=== PATIENT | female | born 2000 | race Caucasian/White ===

== ENCOUNTER 2018-02-06 04:19 | Emergency (ER) | payer OTHER, MEDICAID, SELFPAY ==
[2018-02-06 04:20] VITALS: BP 144/100; PULSE 146; RESP 55; TEMP 36.9; O2SAT 98; BMI 32.3
--- NOTE | 2018-02-06 04:36 | EKG12_ITS ---
Test Reason : MHC Blood Pressure : / mmHG Vent. Rate : 095 BPM Atrial Rate : 095 BPM P-R Int : 144 ms QRS Dur : 098 ms QT Int : 364 ms P-R-T Axes : 049 048 041 degrees QTc Int : 457 ms Normal sinus rhythm Normal ECG Confirmed by VITO COY, JEREMY ([id number]), subeditor FILOMENA CARDOSO ([id number]) on 02/10/2018 2:49:03 PM Referred By: MARISA Confirmed By:JEREMY PADRON MD
[2018-02-06] MEDS: Ziprasidone IM 20 MG/ML VIAL IM (04:38)
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
[2018-02-06 05:07] LABS: Absolute Lymphocyte Count 3.76 X10^3/ul (0.83-4.51); Absolute Neutrophil Count 6.7 X10^3/uL (2.0-7.7); Basophil# 0.03 X10^3/uL; Basophil% 0.3 % (0-1); Eosinophil# 0.17 X10^3/uL; Eosinophils% 1.4 % (0-5); Hematocrit 35.9 % (37-47); Hemoglobin 12.2 g/dl (12.0-15.0); Lymphocyte # 3.76 X10^3/ul (4.0); Lymphocyte % 31.9 % (19-41); Mean Corpuscular Volume 82.5 fL (81-99); Mean Platelet Vol. 11.1 fl (6.2-12.0); Monocyte# 1.09 X10^3/uL; Monocyte% 9.2 % (0-10); Neutrophil # 6.71 X10^3/uL (2.7-7.7); Neutrophil % 56.9 % (47-70); Platelet Count 363 K/mm3 (150-450); RBC Distribution Width CV 13.7 % (11.6-14.6); RBC Distribution Width SD 40.4 fl (35.1-43.9); Red Blood Count 4.35 M/mm3 (4.2-5.4); White Blood Count 11.8 K/mm3 (4.4-11.0)
[2018-02-06 05:08] LABS: POSITIVE COUNT NO; POSITIVE DIFFERENTIAL NO; POSITIVE MORPHOLOGY NO
[2018-02-06 05:21] LABS: ALB/GLOB Ratio 0.9 RATIO (0.9-2.4); AST(SGOT) 20 U/L (15-37); Alanine Aminotransfer ALT/SGPT 43 U/L (13-56); Albumin, Serum 3.5 g/dL (3.2-5.0); Alkaline Phosphatase 84 U/L (45-117); Anion Gap 10 (5-15); BUN 19 mg/dL (7-18); BUN/Creat Ratio 26.9 RATIO (10-20); Calcium,Total 8.7 mg/dL (8.5-10.1); Chloride 109 mmol/L (98-107); Creatinine, Serum 0.71 mg/dL (0.55-1.02); EST Glomerular Filtration Rate 112 mL/min (>60); Est Glom Filt Rate - Afr Amer 136 mL/min (>60); Estimated Creatinine Clearance 119.31 ml/min; Globulin 3.9 g/dL (2.2-4.2); Glucose 106 mg/dL (74-106); Potassium 3.5 mmol/L (3.5-5.1); Protein, Total 7.4 g/dL (6.4-8.2); Sodium Level 142 mmol/L (136-145)
[2018-02-06 05:26] VITALS: BP 111/64; PULSE 101; RESP 18; O2SAT 94
[2018-02-06 05:32] LABS: Alcohol, Blood (Medical)-Serum < 3.0 mg/dL
[2018-02-06 05:37] LABS: Pregnancy, Serum, hCG Quali. NEGATIVE Negative (0-9 Nonpreg)
[2018-02-06 05:42] LABS: Amphetamine Urine VISTA NEGATIVE (<1000 ng/mL); Barbiturate Urine VISTA NEGATIVE (< 200 ng/mL); Benzodiazepine Urine VISTA NEGATIVE (< 200 ng/mL); Cocaine Urine VISTA NEGATIVE (< 300 ng/mL); Ecstacy Urine VISTA NEGATIVE (< 500 ng/mL); Methadone Urine VISTA NEGATIVE (< 300 ng/mL); PCP Urine VISTA NEGATIVE (< 25 ng/mL); THC Urine VISTA NEGATIVE (< 50 ng/mL); Vista UDS pH Range 5
--- NOTE | 2018-02-06 05:49 | ED.RN ---
CALLED [facility]SELING CENTER TO HAVE THEM COME SEE PATIENT. SUPERVISOR BLEACH [employer]ANT STATED SHE WILL LET [facility] KNOW.
--- NOTE | 2018-02-06 05:51 | ED.RN ---
GRECIA CALLED STATING SHE IS AT [facility] AND ISN'T FINISHED THERE YET SO THE PATIENT IS GOING TO HAVE TO WAIT UNTIL THE DAYSHIFT. SHE STATED SHE WOULD LET THE DAYSHIFTER COUNSELOR KNOW AND THEY WILL COME OVER TO SEE PATIENT AFTER THEIR MORNING MEETING.
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
[2018-02-06 06:11] VITALS: BP 111/66; PULSE 102; RESP 18; O2SAT 95
[2018-02-06 08:02] VITALS: BP 125/61; PULSE 72; RESP 15; O2SAT 98
[2018-02-06 12:02] VITALS: BP 115/61; PULSE 78; RESP 16; O2SAT 98
[2018-02-06 14:34] VITALS: BP 115/61; PULSE 78; RESP 16; TEMP 36.9; O2SAT 98
== END 2018-02-06 14:34 ==
PROVIDERS: Emergency Medicine; Emergency Provider Emergency Medicine; Family Provider Internal Medicine; PCP Internal Medicine
DX: R45.851 Suicidal ideations (principal); F29 Unspecified psychosis not due to a substance or known physiological condition; Z72.0 Tobacco use
CPT/HCPCS: 80053; 80307; 80320; 84703; 85025; 93005; 96372; 99285; G0480; J3486

== ENCOUNTER → 2018-03-07 08:49 | Outpatient (CLI) | payer OTHER, MEDICAID, SELFPAY ==
[2018-03-07 10:32] LABS: Hematocrit 39.8 % (37-47); Hemoglobin 12.9 g/dl (12.0-15.0); Mean Corp Hgb Conc 32.4 g/gl (32-36); Mean Corpuscular Hgb 26.9 pg (27.0-32.0); Mean Corpuscular Volume 82.9 fL (81-99); Mean Platelet Vol. 10.4 fl (6.2-12.0); Platelet Count 450 K/mm3 (150-450); RBC Distribution Width CV 13.8 % (11.6-14.6); RBC Distribution Width SD 41.9 fl (35.1-43.9); White Blood Count 10.1 K/mm3 (4.4-11.0)
[2018-03-07 10:50] LABS: Valproic Acid (Depakene) Level 4 ug/mL (50-100)
[2018-03-07 10:52] LABS: ALB/GLOB Ratio 0.8 RATIO (0.9-2.4); AST(SGOT) 32 U/L (15-37); Alanine Aminotransfer ALT/SGPT 59 U/L (13-56); Albumin, Serum 3.7 g/dL (3.2-5.0); Alkaline Phosphatase 81 U/L (45-117); Anion Gap 5 (5-15); BUN 14 mg/dL (7-18); BUN/Creat Ratio 14.2 RATIO (10-20); Calcium,Total 8.9 mg/dL (8.5-10.1); Chloride 104 mmol/L (98-107); Creatinine, Serum 0.98 mg/dL (0.55-1.02); EST Glomerular Filtration Rate 77 mL/min (>60); Est Glom Filt Rate - Afr Amer 93 mL/min (>60); Globulin 4.4 g/dL (2.2-4.2); Glucose 79 mg/dL (74-106); Potassium 4.2 mmol/L (3.5-5.1); Prolactin 12.9 ng/mL; Protein, Total 8.1 g/dL (6.4-8.2); Sodium Level 137 mmol/L (136-145)
[2018-03-07 10:55] LABS: Scan Indicated on CBC? Y/N NO
== END ==
PROVIDERS: Family Provider Internal Medicine; PCP Internal Medicine; Visit Provider Registered Nurse
DX: F25.0 Schizoaffective disorder, bipolar type (principal); Z79.899 Other long term (current) drug therapy
CPT/HCPCS: 36415; 80053; 80164; 84146; 85027

== ENCOUNTER → 2018-03-10 15:15 | Outpatient (CLI) | payer MEDICAID, SELFPAY ==
[2018-03-10 18:19] LABS: HIV - WCH Non-Reactive (Nonreactive)
[2018-03-13 03:07] LABS: HCV Quant. RNA PCR HCV Not Detected IU/mL (.)
[2018-03-13 13:53] LABS: HEPATITIS B SURFACE AG Negative (Negative); HSV 1 IgG < 0.91 index (0.00-0.90); HSV 2 IgG < 0.91 index (0.00-0.90)
[2018-03-14 01:20] LABS: Rapid Plasmin Reagin (RPR) NONREACTIVE (NONREACTIVE)
== END ==
PROVIDERS: Family Provider Internal Medicine; PCP Internal Medicine; Visit Provider Nurse Practitioner Women's Health
DX: Z11.3 Encounter for screening for infections with a predominantly sexual mode of transmission (principal)
CPT/HCPCS: 36415; 86592; 86695; 86696; 86703; 87340; 87522

== ENCOUNTER → 2018-03-10 16:05 | Outpatient (CLI) | payer OTHER, MEDICAID, SELFPAY ==
[2018-03-10 17:45] LABS: Chlamydia Trachomatis by PCR Negative (Negative); Neisserai gonorrhoeae by PCR Negative (Negative); Probe Check PASS; Sample Adequacy Control PASS; Specimen Processing Control PASS
== END ==
PROVIDERS: Family Provider Internal Medicine; PCP Internal Medicine; Visit Provider Nurse Practitioner Women's Health
DX: Z11.3 Encounter for screening for infections with a predominantly sexual mode of transmission (principal)
CPT/HCPCS: 36415; 86592; 86695; 86696; 86703; 87340; 87491; 87522; 87591

== ENCOUNTER 2018-04-12 01:49 | Emergency (ER) | payer OTHER, MEDICAID, SELFPAY ==
[2018-04-12 01:50] VITALS: BP 117/91; PULSE 90; RESP 18; TEMP 36.4; O2SAT 99; BMI 36.2
[2018-04-12 02:52] LABS: Absolute Lymphocyte Count 4.19 X10^3/ul (0.83-4.51); Absolute Neutrophil Count 4.9 X10^3/uL (2.0-7.7); Basophil# 0.03 X10^3/uL; Basophil% 0.3 % (0-1); Eosinophil# 0.17 X10^3/uL; Eosinophils% 1.7 % (0-5); Hematocrit 40.1 % (37-47); Hemoglobin 13.2 g/dl (12.0-15.0); Lymphocyte # 4.19 X10^3/ul (4.0); Lymphocyte % 41.2 % (19-41); Mean Corp Hgb Conc 32.9 g/gl (32-36); Mean Corpuscular Hgb 27.4 pg (27.0-32.0); Mean Corpuscular Volume 83.4 fL (81-99); Mean Platelet Vol. 11.4 fl (6.2-12.0); Monocyte# 0.88 X10^3/uL; Monocyte% 8.6 % (0-10); Neutrophil # 4.89 X10^3/uL (2.7-7.7); Platelet Count 413 K/mm3 (150-450); RBC Distribution Width CV 14.3 % (11.6-14.6); RBC Distribution Width SD 43.6 fl (35.1-43.9); Red Blood Count 4.81 M/mm3 (4.2-5.4); White Blood Count 10.2 K/mm3 (4.4-11.0)
[2018-04-12 02:53] LABS: POSITIVE COUNT NO; POSITIVE DIFFERENTIAL NO; POSITIVE MORPHOLOGY NO
[2018-04-12 03:11] LABS: ALB/GLOB Ratio 0.9 RATIO (0.9-2.4); AST(SGOT) 19 U/L (15-37); Alanine Aminotransfer ALT/SGPT 36 U/L (13-56); Albumin, Serum 3.8 g/dL (3.2-5.0); Alkaline Phosphatase 85 U/L (45-117); Anion Gap 7 (5-15); BUN 12 mg/dL (7-18); BUN/Creat Ratio 15.2 RATIO (10-20); Calcium,Total 9.6 mg/dL (8.5-10.1); Chloride 103 mmol/L (98-107); Creatinine, Serum 0.79 mg/dL (0.55-1.02); EST Glomerular Filtration Rate 99 mL/min (>60); Est Glom Filt Rate - Afr Amer 119 mL/min (>60); Estimated Creatinine Clearance 89.84 ml/min; Globulin 4.3 g/dL (2.2-4.2); Glucose 103 mg/dL (74-106); Potassium 4.3 mmol/L (3.5-5.1); Protein, Total 8.1 g/dL (6.4-8.2); Sodium Level 139 mmol/L (136-145)
--- NOTE | 2018-04-12 03:27 | ED.DCSUM_ITS ---
- ER Visit Summary Date of Service: 04/12/18 Chief Complaint: Vomiting blood History of Present Illness: The patient is a 18 F presenting for evaluation secondary to hematemesis and blood in her stool. Patient reports that she has had issues with intermittent hematemesis over the course of multiple years. She states that typically this will happen once a month or so, will range between being bright red and being coffee ground, and has never been evaluated via endoscopy. Patient reports that she had endoscopy scheduled but then lost her insurance, never followed up. Patient reports that in the last 2 days she has had both an episode of coffee-ground emesis as well as some red blood in her stool. She states she has had a couple of days with episodes of red blood in the stool and that is what prompted her to come to the emergency department. She denies any unintended weight loss. She denies any abdominal pain associated with this. She does not frequently take NSAIDs, she infrequently drinks alcohol. She denies any muscle cramping. Review of systems otherwise negative. Physical Examination: Vital signs are within normal limits, patient is afebrile. General: Patient is well-nourished well-developed and in no acute distress. Head: Normocephalic, atraumatic Eyes: Pupils equal round and reactive bilaterally, extra occular motion intact bialterally ENT: Moist mucous membranes Neck: Supple, no lymphadenopathy, no JVD, no meningismus CVS: Heart regular rate and rhythm, no murmurs, rubs or gallops, radial pulses 2 + bilaterally Resp: Respirations nondistressed, lung sounds clear bilaterally Abdomen: Soft, nontender, nondistended, no palpable masses, normal bowel sounds Back: Nontender Extremities: Nontender, atraumatic, active full range of motion, no peripheral edema Skin: warm, no rashes, no petechia Neuro: Alert and oriented x 4, CN 2-12 intact, no lateralizing neurological defecits Psyc: Normal affect Test Results: CBC unremarkable, chemistry unremarkable, liver panel normal, guaiac found to be negative Emergency Department Course and Treatment: Patient presented for evaluation secondary to reported hematemesis and blood in her stool. Patient did not have any blood on guaiac exam, and her hematologic studies are within normal limits. I did consider the possibility of Landon-Naranjo, but the patient does not have abdominal pain and has not had any weight loss and has normal electrolytes. Patient will be given a course of omeprazole and Carafate, and I did stress the importance to the patient of follow-up for endoscopy. She will be given a referral to general surgery for this. I informed the patient that while this may be gastritis versus an ulcer that it could also be a form of cancer and that she definitely needs to be evaluated for this. She voiced understanding and she was discharged. Disposition: Discharge Impression: 1. Stable upper GI bleed This note was generated with [employer] dictation software. It may contain incorrect words, spelling, and punctuation that were not noted in review of the chart prior to signing ED Disposition - Plan for ED Patient: Disposition: Home or Assisted Living Chief Complaint: GI Bleed Diagnosis: Hematemesis Instructions: ED Bleed UGI Stable Prescriptions: Omeprazole 40 mg PO DAILY #30 capsule. Sucralfate [Carafate] 1 gm PO 4X/DAY #120 tab Referrals: Josias Hernandez MD [STAFF PHYSICIAN] - 1-2 Weeks
[2018-04-12 03:42] VITALS: RESP 16
== END 2018-04-12 03:42 | disposition home or self-care (01) ==
PROVIDERS: Emergency Provider Emergency Medicine; Family Provider Internal Medicine; PCP Internal Medicine
DX: K92.0 Hematemesis (principal); K92.1 Melena; Z72.0 Tobacco use
CPT/HCPCS: 80053; 82274; 85025; 99282; A4216

== ENCOUNTER 2018-04-25 08:37 | Day surgery (SDC) | payer OTHER, MEDICAID, SELFPAY ==
[2018-04-25] VITALS (8 sets, daily range): BP systolic 75–124; BP diastolic 49–81; PULSE 71–85; RESP 16–18; TEMP 36.2–37; O2SAT 98–100; BMI 36.3
--- NOTE | 2018-04-25 | EGD_PTH ---
PATIENT: GILES NGUYEN LOC: EN U#:[id number] AGE/SX: 18/F ROOM: RE04/25/[address]: Dr. Helio Singleton MD : 2000 BED: DIS: 04/25/2018 SPEC #: [id number] RECD: 04/25/18 14:19 STATUS: JORGE JAYSON #: [id number] JAZMIN: 04/25/18 00:[address]: Helio Singleton DEPT: SURGICAL PATHOLOGY RECD BY: Brock Burr ENTERED: 04/28/18 08:41 SP TYPE: EGD BIOPSY OT DR: Dr. Maged Dyer MD Tissues: A - Gastric mucous membrane B - Gastric mucous membrane Procedures: Special Stain Group II Surgery Specimen Level IV Alcian Blue/PAS (control) HEADER OPERATION: EGD with biopsy PRE-OP DIAGNOSIS: GI bleed TISSUE SUBMITTED: A ? Biopsy gastric antrum, path/H. pylori, B ? Biopsy GE junction MICROSCOPIC DIAGNOSIS A. Gastric antrum, biopsy: Mild gastritis. B. GE junction, biopsy: Fragments of gastroesophageal mucosa with minimal chronic inflammation. Intestinal metaplasia (goblet cell metaplasia) is not identified. See comment. SJ:yogi 04/29/18 COMMENT A. The results of immunohistochemistry for Helicobacter pylori will be reported separately ([id number]). B. The specimen predominantly consists of squamous mucosa. Alcian blue/PAS stain with matched control is used in the evaluation of the specimen. MICROSCOPIC DESCRIPTION Slides are reviewed. A. The specimen shows fragments of gastric mucosa with chronic inflammatory cell infiltrates in the lamina propria consisting of lymphocytes and plasma cells, consistent with mild chronic gastritis. GROSS DESCRIPTION A - Received in fixative is one container labeled with the patient's name and designated biopsy gastric antrum. The specimen consists of multiple irregular fragments of light wisdom soft tissue that in aggregate measure 0.5 x 0.5 x 0.1 cm. The specimen is totally submitted in one cassette. B - Received in fixative is one container labeled with the patient's name and designated biopsy GE junction. The specimen consists of multiple irregular fragments of light wisdom soft tissue that in aggregate measure 0.5 x 0.3 x 0.1 cm. The specimen is totally submitted in one cassette. / TANNA:yogi 04/28/18 TC:3 CPT: 90652 x2, 35760
--- NOTE | 2018-04-25 | IMM_PTH ---
PATIENT: GILES NGUYEN LOC: EN U#:[id number] AGE/SX: 18/F ROOM: RE04/25/[address]: Dr. Helio Singleton MD : 2000 BED: DIS: 04/25/2018 SPEC #: [id number] RECD: 04/29/18 13:09 STATUS: JORGE RERonni #: [id number] JAZMIN: 04/25/18 00:[address]: Helio Singleton DEPT: IMMUNOHISTOCHEMISTRY RECD BY: Elena Crenshaw ENTERED: 04/29/18 13:10 SP TYPE: IMMUNO OTHR DR: Dr. Maged Dyer MD Tissues: A - Stomach, NOS Procedures: H Pylori (initial) PHYSICIAN & INSTITUTION [place] [address] SPECIMEN INFORMATION: Tissue Source: A ? Gastric antrum biopsy Clinical Info: GI bleed Specimen Number: [id number] CPT code: 59412 METHODOLOGY: Deparaffinized sections of prefer/formalin-fixed tissue or PAP/DQ stained slides are incubated with monoclonal/polyclonal antibodies/oligonucleotide probes. Localization is made via biotin free immunoperoxidase method. Appropriate controls are performed and reacted as expected. Results on target cell population are indicated in the following table: RESULTS: ANTIBODY / CLONE RESULT Block A H Pylori (polyclonal) negative These tests were developed and their performance characteristics determined by [facility]. They may not have been cleared or approved by the U.S. Food and Drug Administration. The FDA has determined that such clearance or approval is not necessary. INTERPRETATION: A. Gastric antrum, biopsy: Negative for Helicobacter pylori organisms. SJ:yogi 04/30/18
[2018-04-25 09:03] LABS: Internal QC Validated? YES +Cl - CLEAR BKGD; Pregnancy, Urine Negative Negative
--- NOTE | 2018-04-25 09:58 | OP.PCM_ITS ---
Problem List (1) GI bleed Status: Acute Qualifiers: GI bleed type/associated pathology: unspecified gastrointestinal hemorrhage type Qualified Code(s): K92.2 - Gastrointestinal hemorrhage, unspecified Report of Operation Date of Procedure: 04/25/18 Pre-Operative Diagnosis: 1. Epigastric pain. 2. Coffee-ground emesis. 3. Rectal bleeding Post-Operative Diagnosis: 1. Small hiatal hernia. 2. Possible Palak-Melton tears. 3. Normal colonoscopy Surgery/Procedure Performed:: 1. EGD with biopsy. 2. Colonoscopy Specimen's removed: 1. Antral biopsy. 2. GE junction biopsy Description of Procedure: The major risks and benefits associated with the procedure were explained to the patient in detail. The patient verbalized understanding and agreement with the same. The patient was then placed in the left lateral decubitus position. IV sedation was started by anesthesia. The endoscope was then advanced under direct visualization over the tongue, into the esophagus , stomach and duodenum. It was slowly withdrawn and the mucosa was carefully evaluated. Duodenal mucosal abnormalities were not visualized. Antegrade and retrograde views of the stomach were normal and did not reveal ulceration. There did appear to be a small hiatal hernia. Gastric folds were normal. A biopsy of the antrum was performed with cold forceps. The scope was then withdrawn to the GE junction. There appear to be some healing Palak-Melton tears of the distal esophagus. There is no active bleeding. Biopsies of the GE junction were performed. No evidence of Scott's esophagus was apparent. Careful examination of the remainder of the esophagus was normal. The scope was then withdrawn from the patient. The patient was then turned for the colonoscopy portion of the procedure. A digital rectal exam was performed. This examination was within normal limits. A well-lubricated colonoscope was then inserted into the rectum and advanced under direct visualization to the level of the cecum. The bowel prep was good. The cecum was identified by both visual and anatomic landmarks. A photograph was taken of the end of the cecum. The scope was then fully withdrawn while examining the color, texture, anatomy and integrity of the mucosa from the cecum to the anal canal. The findings were consistent with normal colonic mucosa. No active bleeding or blood clots were encountered. No AVMs were encountered. No diverticulosis was encountered. Over 6 minutes were taken to examine the colonic mucosa. Upon reaching the rectum the scope was retroflexed to examine the distal rectal vault. The scope was then straightened and was completely retrieved upon exiting the anal canal and the procedure was terminated. The patient was then transferred to the recovery room in stable condition. Recommendations for follow up: Recommend continuing PPI and Carafate and follow- up in 6 weeks. Resume colonoscopies for screening purposes at age 48.
== END 2018-04-25 11:01 | disposition home or self-care (01) ==
LOC: EN 08:39 → AC 08:40
PROVIDERS: Family Provider Internal Medicine; PCP Internal Medicine; Visit Provider Surgery
PROC: 0DJD8ZZ Inspection of Lower Intestinal Tract, Via Natural or Artificial Opening Endoscopic (ICD-10-PCS; CPT 45378; principal; 2018-04-25 09:40)
DX: K29.50 Unspecified chronic gastritis without bleeding (principal); K44.9 Diaphragmatic hernia without obstruction or gangrene; K31.89 Other diseases of stomach and duodenum; K62.5 Hemorrhage of anus and rectum; K92.0 Hematemesis; K21.9 Gastro-esophageal reflux disease without esophagitis; I10 Essential (primary) hypertension; M54.5 Low back pain; F32.9 Major depressive disorder, single episode, unspecified; F41.9 Anxiety disorder, unspecified; F25.9 Schizoaffective disorder, unspecified; F43.10 Post-traumatic stress disorder, unspecified; F12.90 Cannabis use, unspecified, uncomplicated; F17.200 Nicotine dependence, unspecified, uncomplicated; Z79.899 Other long term (current) drug therapy
CPT/HCPCS: 43239; 45378; 81025; 88305; 88313; 88342; J7120

== ENCOUNTER 2018-07-04 09:00 | Outpatient (RCR) | payer BC, OTHER, MEDICAID, SELFPAY ==
--- NOTE | 2018-06-20 12:48 | HP.PTEVAL_ITS ---
Patient's Visit Information GILES NGUYEN is a 18 year old F referred to Physical Therapy by Maged Dyer MD with a diagnosis of Chronic back pain. Date of Evaluation: 06/20/18 Physical Therapist: Zheng Tang DPT, OC - Visit Plan Frequency: 3x /Week Duration: 4-6 Weeks Plan: 3x/week for 3-6 weeks for ... 1. Neutral spine focus. 2. hip flexor/HS/ gastroc stretches. 3. Core strength emphasizing NS. progress to HEP - Subjective Subjective: LBP, spondylosis, had it for over two years. Started insidiously and every day for two years. Constant dull pain LBP, no buttock or leg pain, no numbness or tingling. Worse with walking too far or standing/sitting too long. Sleep is interrupted sometimes if it is really bad. Avoids lifting heavy objects but can do basics of ADL. Not employed. 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 No regular exercises, goes to gym intermittently for TM/stepper. - Objective Patient ambulates and transfers I and quickly I without evidence of pain. Posture shows large lordosis in L/s and L23 especially and segmentally. Poor pelvic awareness and poor spinal stability. L/S aROM ext full and painful, SB painfree, flexion is limited segmentally L23 and no pain. reflexes 2/3 patella and achilles. Sensation WNL LE to gross light touch. Strength LE 4-/5. - SLR , - slump. tighness present in gastroc, HS adn hip flexor moderately. - Goals Goal 1:: Pain in LB intermittent and 2/10 at worst Goal Time Frame: 4-6 Weeks Goal 2:: Patient feel 75% improved in LB and able to walk to rescue dogs without increased pain. Goal Time Frame: 4-6 Weeks Goal 3:: Sleep without waking for one week. Goal Time Frame: 4-6 Weeks Goal 4:: I approp HEP to minimize future problems Goal Time Frame: 4-6 Weeks - Rehabilitation Potential Physical Therapy Diagnosis: Chronic back pain facet related. Rehabilitation Potential: Fair - Anticipated Interventions Patient/Client Instruction: Educate patient on: Condition, Plan of Care For the Purpose of:: To decrease pain, To improve ability of physical actions for home/community/work/leisure Therapeutic Exercise to Include: Strength training, Flexibilty training, Dynamic Lumbar Stabilization For the Purpose of:: To decrease pain, To improve muscle performance and motor function, To improve ability of physical actions for home/community/work/leisure Thank you for the opportunity to evaluate your patient. For Medicare and Medicare HMO plans, please review the plan of care and approve it. It will need to be FAXED BACK to us at [phone] for Medicare purposes. Please let me know if there are questions or concerns regarding this plan of care. Physician Signature: Date:
--- NOTE | 2018-09-16 11:50 | HP.PT.NRP ---
HP - Discharge Summary (1) - Patient Information GILES NGUYEN was seen in my office for initial evaluation on 06/20/18. The following Plan of Care was established for this patient: Initial Frequency: 3x /Week Initial Duration: 4-6 Weeks - Anticipated Interventions Patient/Client Instruction: Educate patient on: Condition, Plan of Care For the Purpose of:: To decrease pain, To improve ability of physical actions for home/community/work/leisure Therapeutic Exercise to Include: Strength training, Flexibilty training, Dynamic Lumbar Stabilization For the Purpose of:: To decrease pain, To improve muscle performance and motor function, To improve ability of physical actions for home/community/work/leisure This patient was last seen in our office 07/04/18. Pertinent comments regarding their Physical therapy will appear below: Pt seen 5 visits of plan of care but no showed or cancelled the last three. At this point, it has been over 6 weeks adn I will discontinue due to nonattendance. At this point I will be discontinuing this patient from physical therapy. I would be happy to see this patient again in the future if found appropriate by the physician. Thank you! Zheng Tang, DPT, OC
== END 2018-07-04 19:00 | disposition home or self-care (01) ==
LOC: PT 09:00
PROVIDERS: Family Provider Internal Medicine; PCP Internal Medicine; Visit Provider Internal Medicine
DX: G54.9 Nerve root and plexus disorder, unspecified (principal); G89.29 Other chronic pain
CPT/HCPCS: 97110; 97161

== ENCOUNTER 2018-10-18 03:57 | Emergency (ER) | payer BC, MEDICAID, SELFPAY ==
[2018-09-16 14:21] VITALS: BMI 34.2
[2018-10-18 03:58] VITALS: BP 128/85; PULSE 88; RESP 16; TEMP 36.9; O2SAT 98; BMI 32.9
--- NOTE | 2018-10-18 04:13 | CT_ITS ---
STUDY: CT SOFT TISSUE NECK WITH CONTRAST REASON FOR EXAM: Female, 18 years old. Right neck swelling with difficulty swallowing and eating. RADIATION DOSAGE (If Supplied By Facility): CTDIvol = ( 20.29 ) mGy, DLP = ( 567.44 ) mGycm TECHNIQUE: The patient was scanned in a multi-detector CT scanner. High resolution transaxial imaging was performed following intravenous administration of 75 ml of Isovue 300 contrast material. Sagittal and coronal images were reconstructed. Individualized dose optimization techniques were used for this CT. COMPARISON: None. FINDINGS: Normal bilateral parotid glands. Normal bilateral tub washer spaces. Normal bilateral parapharyngeal spaces. Normal bilateral carotid spaces. Normal bilateral sublingual and submandibular glands and spaces. Normal visualized nasopharynx. Normal retropharyngeal space. Normal perivertebral space. Normal visualized bilateral faucial tonsils. The visualized tongue, tongue base and oropharynx are normal. There are multiple enlarged lymph nodes involving bilateral 2A regions. The largest right-sided apollo mass measures approximately 5.8 x 2.9 x 2.5 cm in size. There are also enlarged left-sided level 2A nodes with the largest apollo mass measuring 3.7 x 2.1 x 2.1 cm in size. There is no demonstrated solid or cystic mass lesion. There is no abnormal contrast enhancement. Normal epiglottis, bilateral vallecula and hypopharynx. The pre-epiglottic and paraglottic adipose spaces are normal. Normal visualized bilateral piriform sinuses, aryepiglottic folds, vocal cords, and arytenoid-cricoid articulations. Normal subglottic trachea. Normal bilateral lobes of the thyroid gland. Normal visualized pulmonary apices. There is suggestion for mediastinal lymphadenopathy with enlarged prevascular lymph nodes. Normal visualized paranasal sinuses. There is reversal of the normal cervical lordosis. The cervical and thoracic vertebral bodies have generally normal height and alignment. CT/Soft Tissue Neck WITH Contrast IMPRESSION: 1. Pathologic lymphadenopathy involving primarily of the level 2 apollo regions. Potential etiologies include sequela of a viral infection, and lymphoma. 2. There may also be mediastinal lymphadenopathy, incompletely imaged on the current study. Electronically Signed: Gisel Lomeli MD at 5:22 EST , Service support ,
[2018-10-18] MEDS: Ketorolac 30 MG/ML Syringe IV (04:23)
[2018-10-18] MEDS: 0.9% Normal Saline 1,000 ML 999 ML IV (04:23)
[2018-10-18] MEDS: Ondansetron 4 MG/2 ML Vial IV (04:23)
[2018-10-18 05:19] LABS: Absolute Lymphocyte Count 6.95 X10^3/ul (0.83-4.51); Absolute Neutrophil Count 1.5 X10^3/uL (2.0-7.7); Basophil# 0.34 X10^3/uL; Basophil% 3.5 % (0-1); Differential Indicated SCAN CRITERIA MET; Eosinophil# 0.02 X10^3/uL; Eosinophils% 0.2 % (0-5); Hematocrit 34.5 % (37-47); Hemoglobin 11.3 g/dl (12.0-15.0); Lymphocyte # 6.95 X10^3/ul (4.0); Lymphocyte % 71.6 % (19-41); Mean Corp Hgb Conc 32.8 g/gl (32-36); Mean Corpuscular Hgb 26.7 pg (27.0-32.0); Mean Corpuscular Volume 81.6 fL (81-99); Mean Platelet Vol. 10.7 fl (6.2-12.0); Monocyte# 0.86 X10^3/uL; Monocyte% 8.9 % (0-10); Neutrophil % 15.4 % (47-70); POSITIVE COUNT NO; POSITIVE DIFFERENTIAL YES; POSITIVE MORPHOLOGY YES; Platelet Count 189 K/mm3 (150-450); RBC Distribution Width CV 15.2 % (11.6-14.6); RBC Distribution Width SD 45.4 fl (35.1-43.9); Red Blood Count 4.23 M/mm3 (4.2-5.4); White Blood Count 9.7 K/mm3 (4.4-11.0)
[2018-10-18 05:23] LABS: Anion Gap 9 (5-15); BUN 12 mg/dL (7-18); Calcium,Total 7.9 mg/dL (8.5-10.1); Chloride 108 mmol/L (98-107); Creatinine, Serum 0.67 mg/dL (0.55-1.02); EST Glomerular Filtration Rate 119 mL/min (>60); Est Glom Filt Rate - Afr Amer 144 mL/min (>60); Estimated Creatinine Clearance 105.93 ml/min; Glucose 81 mg/dL (74-106); Potassium 3.1 mmol/L (3.5-5.1); Sodium Level 142 mmol/L (136-145)
[2018-10-18 05:47] LABS: Internal QC Validated? YES +Cl - CLEAR BKGD
[2018-10-18 05:48] LABS: Monotest POSITIVE (Negative)
[2018-10-18 05:53] LABS: Differential Comment SCANNED; Platelet Estimate ADEQUATE (ADEQ); Reactive Lymphocyte 2+; Smudge Cells 1+
[2018-10-18 05:54] LABS: Atypical Lymphocyte 2+ %
--- NOTE | 2018-10-18 05:55 | ED.VISSUMM ---
- ER Visit Summary Date of Service: 10/18/18 Chief Complaint: Neck swelling and pain History of Present Illness: The patient is a 18 F who presents with neck swelling and pain. She has had neck pain for greater than a. She complains of intermittent sweats but has not checked her temperature. She has had 4-5 episodes of nonbloody nonbilious emesis over the last couple of days. She complains of pain particularly on the right side of her neck with movement. She complains of a sore throat. No history of prior similar symptoms. Physical Examination: Afebrile vitals are normal Patient has bilateral cervical lymphadenopathy and a palpable mass on the right side of the neck Bilateral tonsillar enlargement with bilateral tonsillar exudates no tonsillar asymmetry uvula is midline she does have posterior oral pharyngeal erythema Voice is clear no trismus No stridor Heart regular rate and rhythm Lungs are clear Abdomen soft Test Results: Labs notable for hemoglobin 11.3, potassium 3.1. CT of the soft tissue of the neck with IV contrast shows pathologic lymphadenopathy involving primarily of the level 2 apollo regions. It is also possible mediastinal lymphadenopathy. Edgar screen was positive. Emergency Department Course and Treatment: Initially I thought that this may be sialoadenitis. However CT imaging shows that this was on a salivary gland but rather massive lymph nodes. Given diffuse lymphadenopathy with sore throat raised concern for mono and a mono screen was added on which is positive. Total white blood cell count is normal. Lymphadenopathy very unlikely to be related to lymphoma. However patient was advised that if lymphadenopathy does not improve she may require further follow-up or testing. She was advised on supportive care. She understands to return for new or worsening symptoms. All questions answered bedside. Patient discharged. Treatment Plan: [] Disposition: Discharge Impression: Mononucleosis This note was generated with [employer] software. It may contain incorrect words, spelling, and punctuation that were not noted in review of the chart prior to signing ED Disposition - Plan for ED Patient: Chief Complaint: Other, Pain/Inj Referrals: Maged Dyer MD [Primary Care Provider] -
--- NOTE | 2018-10-18 05:59 | ED.DEP ---
ED Disposition - Plan for ED Patient: Chief Complaint: Other, Pain/Inj Instructions: ED Mononucleosis Referrals: Maged Dyer MD [Primary Care Provider] -
[2018-10-18 06:19] VITALS: RESP 16
[2018-10-20 10:54] LABS: Pathologist Review Reviewed
== END 2018-10-18 06:20 | disposition home or self-care (01) ==
PROVIDERS: Emergency Provider Emergency Medicine; Family Provider Internal Medicine; PCP Internal Medicine
DX: B27.90 Infectious mononucleosis, unspecified without complication (principal); I10 Essential (primary) hypertension; K21.9 Gastro-esophageal reflux disease without esophagitis; Z79.899 Other long term (current) drug therapy
CPT/HCPCS: 36415; 70491; 80048; 85025; 86308; 87880; 96361; 96374; 96375; 99284; J7030; Q9967; J2405

== ENCOUNTER 2018-11-21 09:00 | Outpatient (RCR) | payer BC, SELFPAY ==
[2018-10-23 09:49] VITALS: BMI 32.9
--- NOTE | 2018-11-21 09:40 | BH.COMM ---
Communication Note - Communication with Client Communication Note: Pt completed intial paperwork. No significant changes since pre-admission screening. Denies SI. Reports that she had forgetten about ECT appointment today and notes that she has to leave early. Due to leaving early she will not be able to see program psychiatrist today. Will be meeting with ECT psychiatrist this afternoon for ECT treatment. No medication or symptoms issues reported. Aware and will follow up with program psychiatrist next week.
--- NOTE | 2018-11-21 10:05 | BH.SGPN.GN ---
Behaviors/Verbalizations/Mental Status: [] Eye contact is good. Motor activity is appropriate. Appearance is disheveled. Speech is Appropriate. Mood is depressed. Affect is flat. Thoughts are linear and logical. No evidence of psychosis. Client Response/Progress/Benefit: [] Pt was an active participant in group activity and discussion. Pt shira a picture depicting current reality and shared it with the group. In pt's current reality she shira herself alone behind a brick wall. The brick wall symbolizes stress, MH, work, and family. Pt then shira a picture depicting desired reality which is her breaking through the wall with a sledge hammer. Identified barriers which are keeping from desired reality are no motivation and inability to get in touch with feelings Benefited from group with self-reflect of current status and desired status as well as the barriers keeping her from her mental health wellness. Will continue in PHP to maintain safety and prevent further decompensation. Narrative Note: []
--- NOTE | 2018-11-26 09:53 | BH.COMM ---
Communication Note - Communication with Client Communication Note: Spoke with patient over the phone. Reports that due to continued ECT treatment she feels that IOP program at this time may not be the best idea. Strated that once ECT is completed she will reach out again to start the program. Pt will be discharged.
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
== END 2018-11-26 11:36 | disposition home or self-care (01) ==
LOC: BHIOP 09:00
PROVIDERS: Family Provider Internal Medicine; PCP Internal Medicine; Referring Provider Psychiatry & Neurology Psychiatry; Visit Provider Psychiatry & Neurology Psychiatry
DX: F25.9 Schizoaffective disorder, unspecified (principal)
CPT/HCPCS: H0035; 90853

== ENCOUNTER 2019-01-15 18:29 | Emergency (ER) | payer BC, SELFPAY ==
[2018-10-23 09:49] VITALS: BMI 32.9
[2019-01-15 18:30] VITALS: BP 117/81; PULSE 79; RESP 16; TEMP 36.6; O2SAT 99; BMI 30.2
--- NOTE | 2019-01-15 18:45 | CM.ED ---
SOCIAL WORK NOTE PATIENT PRESENTS TO ED PINK SLIPPED BY POLICE. PATIENT WITH SUICIDAL IDEATION AND PLAN TO HANG SELF. PATIENT HAD A NOOSE. PATIENT TO BE EVALUATED BY CRISIS ONCE MEDICALLY CLEARED. CLAUDIA GRACE, ASSISTANT DIRECTOR OF SECURITY, TAR LEVELER.
--- NOTE | 2019-01-15 19:00 | ED.VISSUMM ---
- ER Visit Summary Date of Service: 01/15/19 Chief Complaint: Depressed and suicidal ideation. History of Present Illness: The patient is a 18 F treatment Psychiatric illness including bipolar, borderline personality disorder, schizoaffective disorder, anxiety and hypertension. Patient is supposed to be on psychiatric meds but is currently not taking them. He lives with her boyfriend and his family. She says she has been under increasing stress due to work and other issues. She is been more depressed. Today she had suicidal thoughts. And had made a noose and put around the tree but did not actually attempt to hang herself. Police were involved and she was brought to the ER. She denies any overdose. She has had prior psychiatric admissions including one in October. Physical Examination: Well-appearing 18-year-old no acute distress. Vital signs are stable afebrile. H EENT exam atraumatic. Pupils are reactive light. No smell of alcohol or signs of toxidrome. Piercings. Neck nontender no trauma. Lungs clear to auscultation bilaterally. Heart regular rhythm no murmur. Abdomen soft nontender. Moving all 4 extremities. Neurovascular intact. No injuries to her extremities. No lacerations. No track woodard. Back nontender. Neurologically she is awake alert with no focal motor deficits. Currently she is cooperative and reasonably calm. She is neither violent nor verbally abusive at this time. Test Results: ED mental health screening labs. No acute abnormality. Positive cannabis on the tox screen. Alcohol negative. Emergency Department Course and Treatment: Crisis evaluation Treatment Plan: I discussed with the crisis drywall professional. They also believe the patient is at risk and are going to place her in a psychiatric facility. Disposition: Transfer to psychiatric facility. Impression: Acute on chronic depression Acute suicidal ideation History of schizoaffective disorder and borderline personality This note was generated with Zarbee'sation software. It may contain incorrect words, spelling, and punctuation that were not noted in review of the chart prior to signing ED Disposition - Plan for ED Patient: Referrals: Maged Dyer MD [Primary Care Provider] -
--- NOTE | 2019-01-15 19:03 | ED.DCSUM_ITS ---
- ER Visit Summary Date of Service: 01/15/19 Chief Complaint: Depressed and suicidal ideation. History of Present Illness: The patient is a 18 F treatment Psychiatric illness including bipolar, borderline personality disorder, schizoaffective disorder, anxiety and hypertension. Patient is supposed to be on psychiatric meds but is currently not taking them. He lives with her boyfriend and his family. She says she has been under increasing stress due to work and other issues. She is been more depressed. Today she had suicidal thoughts. And had made a noose and put around the tree but did not actually attempt to hang herself. Police were involved and she was brought to the ER. She denies any overdose. She has had prior psychiatric admissions including one in October. Physical Examination: Well-appearing 18-year-old no acute distress. Vital signs are stable afebrile. H EENT exam atraumatic. Pupils are reactive light. No smell of alcohol or signs of toxidrome. Piercings. Neck nontender no trauma. Lungs clear to auscultation bilaterally. Heart regular rhythm no murmur. Abdomen soft nontender. Moving all 4 extremities. Neurovascular intact. No injuries to her extremities. No lacerations. No track woodard. Back nontender. Neurologically she is awake alert with no focal motor deficits. Currently she is cooperative and reasonably calm. She is neither violent nor verbally abusive at this time. Test Results: ED mental health screening labs. No acute abnormality. Positive cannabis on the tox screen. Alcohol negative. Emergency Department Course and Treatment: Crisis evaluation Treatment Plan: I discussed with the crisis qa intern. They also believe the patient is at risk and are going to place her in a psychiatric facility. Disposition: Transfer to psychiatric facility. Impression: Acute on chronic depression Acute suicidal ideation History of schizoaffective disorder and borderline personality This note was generated with RESAASation software. It may contain incorrect words, spelling, and punctuation that were not noted in review of the chart prior to signing ED Disposition - Plan for ED Patient: Referrals: Maged Dyer MD [Primary Care Provider] -
[2019-01-15 19:47] LABS: Absolute Lymphocyte Count 3.03 X10^3/ul (0.83-4.51); Absolute Neutrophil Count 7.3 X10^3/uL (2.0-7.7); Basophil# 0.02 X10^3/uL; Basophil% 0.2 % (0-1); Eosinophil# 0.07 X10^3/uL; Eosinophils% 0.6 % (0-5); Hematocrit 38.9 % (37-47); Hemoglobin 12.8 g/dl (12.0-15.0); Lymphocyte # 3.03 X10^3/ul (4.0); Mean Corp Hgb Conc 32.9 g/gl (32-36); Mean Corpuscular Hgb 26.4 pg (27.0-32.0); Mean Corpuscular Volume 80.4 fL (81-99); Mean Platelet Vol. 11.6 fl (6.2-12.0); Monocyte# 1.23 X10^3/uL; Monocyte% 10.6 % (0-10); Neutrophil # 7.26 X10^3/uL (2.7-7.7); Neutrophil % 62.3 % (47-70); Platelet Count 361 K/mm3 (150-450); RBC Distribution Width SD 43.6 fl (35.1-43.9); Red Blood Count 4.84 M/mm3 (4.2-5.4); White Blood Count 11.6 K/mm3 (4.4-11.0)
[2019-01-15 19:48] LABS: POSITIVE COUNT NO; POSITIVE DIFFERENTIAL NO; POSITIVE MORPHOLOGY NO
[2019-01-15 19:54] LABS: Anion Gap 5 (5-15); BUN 13 mg/dL (7-18); BUN/Creat Ratio 16.9 RATIO (10-20); Calcium,Total 9.2 mg/dL (8.5-10.1); Chloride 109 mmol/L (98-107); Creatinine, Serum 0.77 mg/dL (0.55-1.02); EST Glomerular Filtration Rate 101 mL/min (>60); Est Glom Filt Rate - Afr Amer 122 mL/min (>60); Estimated Creatinine Clearance 92.18 ml/min; Glucose 82 mg/dL (74-106); Potassium 3.5 mmol/L (3.5-5.1); Sodium Level 140 mmol/L (136-145)
[2019-01-15 20:00] VITALS: RESP 14
[2019-01-15 20:03] LABS: Amphetamine Urine VISTA NEGATIVE (<1000 ng/mL); Barbiturate Urine VISTA NEGATIVE (< 200 ng/mL); Benzodiazepine Urine VISTA NEGATIVE (< 200 ng/mL); Cocaine Urine VISTA NEGATIVE (< 300 ng/mL); Ecstacy Urine VISTA NEGATIVE (< 500 ng/mL); Methadone Urine VISTA NEGATIVE (< 300 ng/mL); PCP Urine VISTA NEGATIVE (< 25 ng/mL); THC Urine VISTA POSITIVE (< 50 ng/mL); Vista UDS pH Range 6
[2019-01-15 20:17] LABS: Pregnancy, Serum, hCG Quali. NEGATIVE Negative (0-9 Nonpreg)
[2019-01-15 21:00] VITALS: RESP 16
[2019-01-15 22:00] VITALS: BP 109/63; PULSE 73; RESP 14; O2SAT 98
--- NOTE | 2019-01-15 22:21 | NURSING ---
ACCEPTED TO [facility] BY DR. NICOLAS BRADLEY UNIT [phone] REPORT
[2019-01-15] MEDS: Ziprasidone IM 20 MG/ML VIAL IM (22:50)
--- NOTE | 2019-01-15 23:25 | ED.RN ---
PT WAS INFORMED THAT SHE WAS GOING TO BED TRANSFERRED TO [facility]. AT THIS POINT SHE RAN FROM THE NURSE OUT OF THE DEPARTMENT AND DOWN TE BACK [place] OF THE HOSPITAL. SHE WAS ESCORTED BACK TO HER ROOM WITH SEVERAL STAFF MEMBERS AND GIVEN AN IM INJECTION OF MEDICATION TO HELP CALM HER DOWN. BEDSIDE REPORT WAS GIVEN TO THE SQUAD TAKING HER. REPORT WAS CALLED TO HOWARD FROM [facility]
[2019-01-15 23:28] VITALS: RESP 16
== END 2019-01-15 23:28 ==
LOC: ED 19:15
PROVIDERS: Emergency Provider Emergency Medicine; Family Provider Internal Medicine; PCP Internal Medicine
DX: F31.9 Bipolar disorder, unspecified (principal); R45.851 Suicidal ideations; F25.9 Schizoaffective disorder, unspecified; F60.3 Borderline personality disorder; F41.9 Anxiety disorder, unspecified; I10 Essential (primary) hypertension
CPT/HCPCS: 80048; 80307; 80320; 84703; 85025; 99284; G0480; J3486

== ENCOUNTER 2019-02-16 09:00 | Outpatient (RCR) | payer BC, SELFPAY ==
--- NOTE | 2019-02-16 10:40 | BH.COMM ---
Communication Note - Communication with Client Communication Note: Completed admission paperwork. Denies any significant changes since pre-admission screening. Denies any active suicidal ideations, plan, or intent. Appears motivated for IOP.
--- NOTE | 2019-02-16 11:25 | BH.SGPN.GN ---
Addendum entered and electronically signed by JAN Griffin 10/21/19 10:28: Addendum entered to include missing Group Psychotherapy Session Note #2. Date: 02/16/19 Start: 1025 Duration: 50 minutes Plant Engineering Manager: Erica Vinson Group Topic: Crisis # of Participants: 10 Goal of Group: To increase understanding of a crisis and improve client?s awareness of personal warning signs before crisis. Staff Interventions: Therapist facilitated group discussion about defining a crisis and specifying various events that are considered a crisis. Therapist led the group in discussion about identifying personal warning signs before a crisis and importance of being aware of those signs. Therapist provided support by using active listening and providing feedback. Behaviors/Verbalizations/Mental Status: Client alert and oriented, casually dressed and groomed. Eye contact fair. Motor activity restless. Speech within normal limits. Affect constricted, mood dysthymic and anxious. Thoughts linear, logical, no signs of hallucinations or delusions. Client Response/Progress/Benefit: Client passive participant AEB pt providing limited input, however appeared to listen attentively to others. Connected with discussion on how coping with external crisis by using unhealthy coping skills could lead to personal crisis. Client completed the personal warning signs worksheet and identified crisis warning signs to include: restlessness, increased impulsiveness, and isolation. Benefited from group by increasing awareness of crisis and personal warning signs. Will continue IOP tx to increase healthy coping, improve emotional regulation and prevent decompensation. Original Note: Behaviors/Verbalizations/Mental Status: []Client alert and oriented, casually dressed and groomed. Eye contact fair. Motor activity appropriate. Speech within normal limits. Affect constricted, mood anxious. Thoughts linear, logical, no signs of hallucinations or delusions. Client Response/Progress/Benefit: []Client responded well to session as evidenced by client contributing to discussion and listening attentively to others. Client identified her warning signs for crisis and gained further awareness of her earliest warning signs. Client?s top three early warning signs were uncontrollable worries, racing thoughts, and apathy. Client recognized that awareness of these warning signs can prevent further crisis and help client utilize healthy coping skills to break the cycle. Client created a crisis action plan to help client better manage warning signs for crisis. Client?s plan included coping skills such spending time outside and talking to trusted supports. Client selected two items that will help her remember these crisis interventions including a feather and a rock. Client appeared to benefit from creating a crisis action plan and increasing her self-awareness. Client to continue IOP to prevent decompensation and increase emotional regulation.
--- NOTE | 2019-02-16 16:24 | BH.DR.ITP ---
Initial Treatment Plan - Patient Information Visit Information: ADMISSION DATE: 02/16/19 EXPECTED LOS: 4-6 weeks Diagnoses:: Schizoaffective D/O, Bipolar type; DIONICIO, Alcohol Use D/O - Problems/Symptoms Problem #1:: Schizoaffective D/O, bipolar type Symptom:: command/visual/auditory hallucinations, depression, paranoia, delusions Problem #2:: DIONICIO Symptom:: anxiety, worry, shakiness Problem #3:: Alcohol Use Disorder, Problematic Cannabis Use Symptom:: drinking excessively, amoking cannabis to self-medicate
--- NOTE | 2019-02-26 16:28 | BH.PSY.EVA_ITS ---
Initial Treatment Plan - Patient Information Visit Information: ADMISSION DATE: 02/16/19 EXPECTED LOS: 4-6 weeks Diagnoses:: Schizoaffective D/O, Bipolar type; DIONICIO, Alcohol Use D/O - Problems/Symptoms Problem #1:: Schizoaffective D/O, bipolar type Symptom:: command/visual/auditory hallucinations, depression, paranoia, delusions Problem #2:: DIOINCIO Symptom:: anxiety, worry, shakiness Problem #3:: Alcohol Use Disorder, Problematic Cannabis Use Symptom:: drinking excessively, amoking cannabis to self-medicate
== END 2019-02-17 23:59 ==
LOC: BHIOP 09:00
PROVIDERS: Family Provider Internal Medicine; PCP Internal Medicine; Referring Provider Psychiatry & Neurology Psychiatry; Visit Provider Psychiatry & Neurology Psychiatry
DX: F25.0 Schizoaffective disorder, bipolar type (principal); F41.1 Generalized anxiety disorder; Z72.89 Other problems related to lifestyle
CPT/HCPCS: H0035; 90853

== ENCOUNTER 2019-02-18 09:00 | Outpatient (RCR) | payer BC, SELFPAY ==
--- NOTE | 2019-02-16 09:06 | BH.SGPN.GN ---
Behaviors/Verbalizations/Mental Status: [t alert and oriented, casual dress, grooming appropriate. Eye contact good. Motor activity appropriate. Speech within normal limits. Affect congruent, mood euthymic, anxious. Thoughts linear, logical, no signs of hallucinations or delusions. Reviewed client?s symptom tracker, no signs of suicidal ideation, plan, or intent as of today.?] Client Response/Progress/Benefit: [Pt was a willing participant in group discussion, providing limited input however as it is her first day in IOP group. Discussed that ongoing depression and issues with PTSD have led to IOP admission. Indicates issues in struggling with nausea when becoming anxious or overwhelmed. Pt appeared to benefit from support of the group and discussed wanting to improve social supports, anxiety management, and self-esteem. Progress limited due to pt being new to program. Pt recommended continued IOP tx to further improve emotion regulation, maintain safety, as well as to prevent decompensation. ] Narrative Note: []
--- NOTE | 2019-02-18 09:09 | BH.SGPN.GN ---
Behaviors/Verbalizations/Mental Status: [Pt alert and oriented, casual dress, grooming appropriate. Eye contact fair to good. Motor activity appropriate. Speech within normal limits. Affect congruent, mood depressed and anxious. Thoughts linear, logical, no signs of hallucinations or delusions. Reviewed client?s symptom tracker, no signs of suicidal ideation, plan, or intent as of today.?] Client Response/Progress/Benefit: [Pt receptive of session, provided input to the group and remained an active listener throughout. Pt indicated emotion for today is ?worried and went on to explain that she had recently learned of several family situations that are stressing her out and causing increased worry about their health and wellness. Pt described discovering that a friend had been declared a missing person which is her primary stressor but that she is trying to use healthy coping skills rather than return to her old unhealthy means for coping. Identified talking to her supports and setting boundaries with toxic people as well as spending time outdoors. Pt progress noted in ability to identify consequences of returning to prior coping mechanisms however continues to struggle in implementation of alternative coping mechanisms. Recommended continued IOP tx to improve mental health sx, increase positive self-talk and healthy boundaries, as well as prevent decompensation.] Narrative Note: []
--- NOTE | 2019-02-18 10:17 | BH.SGPN.GN ---
Behaviors/Verbalizations/Mental Status: [Client alert and oriented, casually dressed and appropriate grooming. Eye contact good. Motor activity appropriate. Speech within normal limits. Affect constricted, mood depressed and anxious. Thoughts linear, logical, no signs of hallucinations or delusions. ] Client Response/Progress/Benefit: [Pt receptive to session, provided input and actively contributing throughout discussion on stress. Able to brainstorm with the group positive and negative aspects of stress on physical and mental health. Indicated that an example of ?good stress? as increase motivation and ability to meet deadlines. Appeared to benefit from gaining awareness of own current stressors and learning about the impact stress has on overall wellbeing. Discussed that overwhelming stress causes her to shut down, lash out at others, lose focus, and impacts her memory. She participated in identifying current stressors impacting mental health. Pt's current stressors include: mental health problems, estranged family, money, past actions, and wanting to move out. Pt noted that her most significant stressor is ruminating on the past. Progress noted in improved ability to identify impact of current stressors on mental health and wellbeing. Recommended continued IOP tx to improve anxiety and depression symptom management, increase self-confidence, and prevent decompensation. ] Narrative Note: []
--- NOTE | 2019-02-20 09:10 | BH.SGPN.GN ---
Behaviors/Verbalizations/Mental Status: [] Eye contact is good. Motor activity is appropriate. Appearance is neat. Speech is Appropriate. Mood is anxious. Affect is congruent. Thoughts are linear and logical. No evidence of psychosis. Reviewed daily check in sheet and no reports of suicidal ideations or intent Client Response/Progress/Benefit: [] Pt spoke little during group however was attentive. Restless. Emotion for today is overwhelmed. Shared with the group numerous psychosocial stressors as well as a positive of helping out a friend who was in an emotional crisis. She was offered a job however has some concern that she will not be able to keep the job due to mental health issues. Despite numerous psychosocial stressors around her involving friends and bio-family she reports that she is managing day to day emotions well. Benefited from group support and praise. Will continue in IOP to maintain safety, prevent decompensation, and further stabilize mood. Narrative Note: []
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
--- NOTE | 2019-02-20 13:56 | BH.DR.ITP ---
Initial Treatment Plan - Patient Information Visit Information: ADMISSION DATE: 02/16/19 EXPECTED LOS: 4-6 weeks Diagnoses:: Schizoaffective disorder, bipolar type; DIONICIO; alcohol use disorder; problematic cannabis use - Problems/Symptoms Problem #1:: schizoaffective disorder, bipolar type Symptom:: Hallucinations, depression, paranoia, delusions Problem #2:: DIONICIO Symptom:: anxiety, worry, shakiness Problem #3:: alcohol use disorder; problematic cannabis use Symptom:: Drinking excessively and smoking MJ to self-medicate
--- NOTE | 2019-02-20 15:43 | BH.MDN_ITS ---
Multi-Disciplinary Note - Note 45-min Individual Time Started:: 11:20 Date: 02/20/19 Purpose of session/treatment goals addressed:: The purpose of this session was to gather information on client's current stressors, symptoms, and treatment goals. Another goal was to build rapport, practice grounding techniques, and set a goal. Eye Contact:: Good Motor Activity:: Restless - shaking her leg throughout session Appearance:: Neat Speech:: Appropriate Mood:: Anxious, Dysthymic Affect:: Other - smiling and laughing while reporting high anxiety and disappointment Thoughts:: Racing, No evidence of hallucinations/delusions noted Staff Interventions:: Therapist used active listening and open-ended questions to explore client's current stressors, symptoms, and treatment goals. Therapist used strengths perspective to build rapport and help client identify positives and personal resilience factors. Therapist led client grounding techniques to help reduce client?s symptoms of anxiety. Therapist gathered client?s treatment goals. Therapist encouraged client to pay attention to self-care over the weekend and helped set a goal to eat a least one meal a day. Client Response:: Client responded well to session, open to meeting with therapist. Client heavily shaking at the beginning of session and reported throwing up before session. Client shared I'm fine I just smoked on an empty stomach. Client able to recognize she is shaking because of anxiety and news she just received. Client receptive to practicing grounding techniques. Client completed a body scan and the 5-senses, which per client's report helped reduce physiological symptoms. Client also receptive to thought challenging and identifying personal resilience factors. Client reports a long-history of mental health symptoms, trauma, and mood dysregulation. Client reported she has struggled with using coping skills in the past which has resulted in crisis. Client self-reports I feel like I'm coping really well right now which is significant as client has numerous major stressors going on in her life. Client reports her boyfriend and best friend are very supportive and encourage client to get mental health help and use coping skills. Client also just recently got connected with a case management and new outpatient therapist. Client shared she enjoys the IOP groups so far. Client shared her treatment goals and reported she hopes to be consistent in using healthy skills as client reports history of variable follow through. Client reported she has not been eating very much over the past few days. Client acknowledges how lack of self-care can impact mood and progress. Client set a goal to eat at least once a day over the weekend. Risks/Concerns:: Client denies any suicidal ideations, plan, and intent as of 02/20/19. Client reports that the past few days she has not been eating very much and client became sick outside during a group break. Client receptive to eating at least one meal a day over the weekend. Therapist to continue to monitor. Progress Toward Goals/Plan:: Client's first week in IOP. Client appears to be integrating well into the group setting. Client reports long history of cady lucinations, emotional dysregulation, trauma, and mental health symptoms. Client reports being hopeful and motivated to improve her mental health. Client has been in treatment for several years and she reports belief that she is handling her symptoms ?way better? than she has in the past. Client currently endorses ruminative anxiety, auditory hallucinations, a depressed mood, difficulty concentrating, poor appetite, and variable sleeping. Client identified her treatment goals to be increase stress management, increase coping skills, reduce negative thoughts, and increase consistent follow through. Client to continue IOP to prevent decompensation and increase emotional regulation skills. Time Stopped:: 12:00
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
--- NOTE | 2019-02-22 09:29 | BH.MTP ---
[facility] Treatment Plan - Patient Information Program Physician:: Flavia Lee Primary Therapist:: Fawn Acuna - Psychiatric Diagnoses Psychiatric Diagnoses:: Schizoaffective disorder, bipolar type F25.0; DIONICIO; alcohol use disorder; problematic cannabis use Diagnosis Code(s):: F25.0 - Estimated LOS Estimated LOS (in weeks):: 6 Problem/Goal #1 - Problem/Goal #1 Stated Goal:: Client will increase mood stability, decrease depressive symptoms, and paranoia due to schizoaffective disorder, bipolar type through Intensive Outpatient Program Description of Barriers: Client reports a long history of mental health symptoms that have impacted her ability to maintain a job. Client is currently looking for work and independent housing, but she fears she will not be able to hold down a job. Client reports a turbulent relationship with her boyfriend's mother, who client and her boyfriend live with, which increases client's anxiety per her report. Client self-reports history of lack of follow through with using coping skills and medication noncompliance. Client is currently utilizing medical marijuana to cope with her PTSD and anxiety, but she recognizes she needs to learn other ways to cope as well. Client also drinks and has a history of substance abuse. Client has been struggling to maintain a consistent eating and sleeping schedule. Client reports difficulty setting boundaries with toxic people and people pleasing that leads client feeling overwhelmed and burnout. Functional Impact: Client is a 18-year-old female with a history of schizoaffective disorder, bipolar type, PTSD, and anxiety. Client has had several psychiatric admissions with two recent admissions since September 2018. Client was discharged from [facility] on 01/21/19. Client was referred to [facility] by her outpatient psychiatric nurse practitioner, Isa Weston, due to ongoing mood symptoms. Client endorses increased sleep, lack of motivation, lack of energy, anhedonia, worthlessness, and hopelessness. Client denies any active suicidal ideations, plan, or intent. Client has a history of suicidal attempts and gestures. Client reports long-standing history of auditory and visual hallucinations, but shared they are not currently distressing. Client also reports anxiety, rumination, and significant history of trauma. Client's symptoms are impacting her social and occupational functioning and impacting her ability to function at her baseline. Goal Relevant Strengths/Supports: Client is a kind, intelligent, and resilient person who reports motivation to improve her mental health. Client shared belief she is managing her mental health better than she has in the past, which is providing client hope. Client has a case finishing machine adjuster who is helping client find affordable housing. Client identifies her boyfriend and her best friend as her primary mental health supports and client shared they keep me positive. Client uses coping skills such as art and being in nature. Client is insightful and determined to improve her life. - Objectives Objective #1 Stated Objective: Client will learn and utilize 2-3 healthy coping strategies to better manage depressive symptoms and emotional dysregulation as shown by a reduced DSM-5 score for depression. Interventions: Through group and individual sessions, therapist will help client identify triggers and warning signs of depression and emotional dysregulation including emotional, physical, and behavioral changes. Therapist will teach client various coping skills to manage her symptoms and give client tangible resources to use to regulate emotions. Therapist will use cognitive restructuring techniques and help client gain awareness of negative thoughts that reinforce depressive cycles. Therapist will help client incorporate mindfulness and distress tolerance skills when dealing with difficult situations or relationships. Discharge Criteria: Client will have met this goal when she can report learning and using at least 2 coping skills to manage depressive symptoms and emotional dysregulation. Additionally, client will have met this goal when her DSM-5 scores have decreased for depression. Target Date: 03/30/19 Review Date: 03/18/19 Status: open Objective #2 Stated Objective: Client will identify and replace 2-3 negative thinking patterns that reinforce depressive symptoms, helplessness, and paranoia. Interventions: Through groups and individual therapy, client will be provided with education on cognitive distortions, mistaken beliefs, and identifying and combating negative thoughts. Therapist will assist client in recognizing triggers for increased depressive thought patterns. Therapist will help client explore connection between thoughts, feelings, and actions and help client reframe depressive thought patterns. Therapist will help client gain awareness paranoid thoughts and use reality testing to help client challenge these thoughts. Discharge Criteria: Client will have accomplished this goal when client can identify and replace at least 2 negative thinking patterns with more realistic, positive statements. Target Date: 03/30/19 Review Date: 03/18/19 Status: open Problem/Goal #2 - Problem/Goal #2 Stated Goal:: Client will reduce overall frequency, intensity, and duration of the anxiety so that daily functioning is not impaired. Description of Barriers: Client reports a long history of mental health symptoms that have impacted her ability to maintain a job. Client is currently looking for work and independent housing, but she fears she will not be able to hold down a job. Client reports a turbulent relationship with her boyfriend's mother, who client and her boyfriend live with, which increases client's anxiety per her report. Client self-reports history of lack of follow through with using coping skills and medication noncompliance. Client is currently utilizing medical marijuana to cope with her PTSD and anxiety, but she recognizes she needs to learn other ways to cope as well. Client also drinks and has a history of substance abuse. Client has been struggling to maintain a consistent eating and sleeping schedule. Client reports difficulty setting boundaries with toxic people and people pleasing that leads client feeling overwhelmed and burnout. Functional Impact: Client is a 18-year-old female with a history of schizoaffective disorder, bipolar type, PTSD, and anxiety. Client has had several psychiatric admissions with two recent admissions since September 2018. Client was discharged from [facility] on 01/21/19. Client was referred to [facility] by her outpatient psychiatric nurse practitioner, Isa Westno, due to ongoing mood symptoms. Client endorses increased sleep, lack of motivation, lack of energy, anhedonia, worthlessness, and hopelessness. Client denies any active suicidal ideations, plan, or intent. Client has a history of suicidal attempts and gestures. Client reports long-standing history of auditory and visual hallucinations, but shared they are not currently distressing. Client also reports anxiety, rumination, and significant history of trauma. Client's symptoms are impacting her social and occupational functioning and impacting her ability to function at her baseline. Goal Relevant Strengths/Supports: Client is a kind, intelligent, and resilient person who reports motivation to improve her mental health. Client shared belief she is managing her mental health better than she has in the past, which is providing client hope. Client has a case finishing machine adjuster who is helping client find affordable housing. Client identifies her boyfriend and her best friend as her primary mental health supports and client shared they keep me positive. Client uses coping skills such as art and being in nature. Client is insightful and determined to improve her life. - Objectives Objective #1 Stated Objective: Client will identify 2-3 cognitive distortions that lead to rumination and learn 2-3 ways to manage these thoughts to better manage anxiety and stress. Interventions: Therapist will provide education on the most common cognitive distortions and teach client the connection between thoughts, emotions, and feelings. Therapist will assist client in identifying, challenging, and replacing dysfunctional thoughts with positive, more realistic thoughts. Therapist will use CBT techniques to help client gain awareness of thinking errors and learn how to more effectively handle negative thoughts. Discharge Criteria: Client will have accomplished this goal when can identify at least 2 cognitive distortions and at least 2 coping skills to manage negative thoughts. Target Date: 03/30/19 Review Date: 03/18/19 Status: open Objective #2 Stated Objective: Client will identify 2-3 anxiety and crisis triggers and 2 healthy calming coping skills, to replace substance use, to use when feeling anxious to reduce anxiety as shown by decreased DSM-5 cross-cutting score. Interventions: Therapist will help client increase awareness of anxiety and crisis triggers and educate client on ways anxiety impacts overall health. Therapist will teach client various calming strategies to promote emotional regulation and reduction of anxiety. Therapist will assist client in establishing pros and cons of substance use to increase client?s awareness of the biopsychosocial impact substances have on mental health. Therapist will assist client in identifying warning signs and teach client techniques to reduce, remove, or accept stressors to reduce anxiety. Therapist will discuss the importance of self-care and boundaries. Discharge Criteria: Client will have accomplished this goal when can report at least 2 triggers for anxiety and state using 2 calming strategies to manage symptoms. Additionally, client will have accomplished this goal when her DSM-5 cross-cutting scores show a decrease in anxiety. Target Date: 03/30/19 Review Date: 03/18/19 Status: open
--- NOTE | 2019-02-23 09:05 | BH.SGPN.GN ---
Behaviors/Verbalizations/Mental Status: []Client alert and oriented, disheveled appearance. Eye contact poor. Motor activity restless-shaking leg and rocking. Speech within normal limits. Affect flat, mood anxious, depressed. Thoughts linear, logical, no signs of hallucinations or delusions. Reviewed client?s symptom tracker, no risk for suicidal ideation, plan, or intent as of 02/23/19. Client Response/Progress/Benefit: []Client did not respond well to session, shaking and declining to share. Client appeared anxious AEB her restlessness and flat affect. Client declined to share her stressors, but she was willing to check in with therapist after session. The group helped client identify making it into group today as a mental health win. Client appeared to benefit from receiving emotional support and encouragement from peers. Client will continue IOP to prevent decompensation and increase mood stability.?
--- NOTE | 2019-02-23 11:15 | BH.SGPN.GN ---
Behaviors/Verbalizations/Mental Status: []Pt eye contact fair, disheveled in appearance, motor activity appropriate, speech normal rate and tone, mood anxious, constricted affect, thoughts linear and intact, no evidence of delusions or hallucinations. Client Response/Progress/Benefit: []Client responded well to session, listening attentively to others and providing input at times. Client connected with peers during discussion about physical symptoms experience when anxious which included increased heart rate, headache, and restlessness. Client stated isolation and avoidance are her safety behaviors. Client agreed with peers that one cannot prevent anxious thoughts from occurring, but can learn strategies to manage anxiety. Client appeared to connect with mindfulness and the different ways one can practice mindfulness. Client reported she currently uses music, positive self-talk, and going outside as her healthy strategies to manage anxiety. Client created a mindfulness ?menu? and reported she plans to try labeling her anxious thoughts, massage, and meditation as mindfulness and relaxation techniques to manage anxiety. Client appeared to benefit from practicing in the moment mindfulness techniques. Progress noted as client is showing increased self-awareness and communicating her thoughts and feelings with others. Client to continue IOP level of care to decrease negative self-talk, increase utilization of healthy coping skills and prevent decompensation. Narrative Note: []
--- NOTE | 2019-02-23 14:21 | BH.MDN ---
Multi-Disciplinary Note - Note 45-min Individual Time Started:: 10:30 Date: 02/23/19 Purpose of session/treatment goals addressed:: The purpose of this session was to address current symptoms and practice coping skills to reduce client's anxiety. Another goal was to identify supports and crisis prevention strategies. Eye Contact:: Good Motor Activity:: Restless - shaking her leg throughout session Appearance:: Disheveled - hair unkempt and no makeup on Speech:: Appropriate Mood:: Anxious Affect:: Congruent - tearful throughout Thoughts:: Racing, Other - Client reports visual hallucinations that have always been there. Staff Interventions:: Therapist used active listening and open-ended questions to explore client?s current symptoms and triggers. Therapist assisted client in practicing in the moment coping skills to reduce anxiety. Therapist used solution focused strategies to help client problem-solve her current stressors and asked client to sign a release for her casework supervisor. Therapist used a worksheet to help client create crisis prevention coping skills. Therapist helped client gain awareness of the consequences of using unhealthy coping skills and encouraged client to reach out to healthy supports today. Therapist to follow up with IOP treatment team on client?s poor appetite. Client Response:: Client responded well to session, open to meeting with therapist. Client entered session restless and in crisis. Client shared she is feeling done with all the stressors in her life. Client reported It's just one thing after another and I'm trying to work on myself. Client receptive to in the moment coping skills and was able to deescalate slightly. Client reported her boyfriend's mother is causing drama at home and that her friend's baby-daddy lied to the police about client. Client was able to process and challenge anxious, distorted thoughts regarding her fears about the police. Client shared she wants to move out of her house because she feels the environment is toxic and is preventing further mental health progress. Client reported her casework supervisor is trying to help her find housing and client was receptive to signing a release, so therapist can talk with client's casework supervisor. Client shared she got a job and she is going to start today. Client identifies work as a trigger for her and was open to creating a crisis plan. Client identifies coping skills that can help her today such as going outside and talking with positive supports. Client shared she also plans to set boundaries with her boyfriend's mom. Client reported although she is anxious about work, she can view it in a positive as it gets client out of the house and she recognizes the job is temporary. Risks/Concerns:: Client denies any suicidal ideations, plan, and intent as of 02/23/19. Client shared after her last hospitalization she had an epiphany that I don't want to kill myself. Client reports ability to maintain safety. Client continues to report poor appetite. Progress Toward Goals/Plan:: Client's second week in IOP. Client reports she likes the peers and the groups. Client presents with exacerbation of symptoms today due to conflict at home and with a friend?s ex. Client continues to not have an appetite since last Saturday and currently endorses ruminative anxiety, auditory hallucinations, a depressed mood, and difficulty concentrating. Client has awareness that if she does not use coping skills she will further escalate her symptoms. Client receptive to this therapist calling client?s casework supervisor to collaborate on housing resources. Client to continue IOP to prevent further decompensation and increase emotional regulation skills. Time Stopped:: 11:20
--- NOTE | 2019-02-23 14:45 | BH.MDN_ITS ---
Multi-Disciplinary Note - Note 45-min Individual Time Started:: 10:30 Date: 02/23/19 Purpose of session/treatment goals addressed:: The purpose of this session was to address current symptoms and practice coping skills to reduce client's anxiety. Another goal was to identify supports and crisis prevention strategies. Eye Contact:: Good Motor Activity:: Restless - shaking her leg throughout session Appearance:: Disheveled - hair unkempt and no makeup on Speech:: Appropriate Mood:: Anxious Affect:: Congruent - tearful throughout Thoughts:: Racing, Other - Client reports visual hallucinations that have always been there. Staff Interventions:: Therapist used active listening and open-ended questions to explore client?s current symptoms and triggers. Therapist assisted client in practicing in the moment coping skills to reduce anxiety. Therapist used solution focused strategies to help client problem-solve her current stressors and asked client to sign a release for her pillowcase turner. Therapist used a worksheet to help client create crisis prevention coping skills. Therapist helped client gain awareness of the consequences of using unhealthy coping skills and encouraged client to reach out to healthy supports today. Therapist to follow up with IOP treatment team on client?s poor appetite. Client Response:: Client responded well to session, open to meeting with therapist. Client entered session restless and in crisis. Client shared she is feeling done with all the stressors in her life. Client reported It's just one thing after another and I'm trying to work on myself. Client receptive to in the moment coping skills and was able to deescalate slightly. Client reported her boyfriend's mother is causing drama at home and that her friend's baby- daddy lied to the police about client. Client was able to process and challenge anxious, distorted thoughts regarding her fears about the police. Client shared she wants to move out of her house because she feels the environment is toxic and is preventing further mental health progress. Client reported her pillowcase turner is trying to help her find housing and client was receptive to signing a release, so therapist can talk with client's pillowcase turner. Client shared she got a job and she is going to start today. Client identifies work as a trigger for her and was open to creating a crisis plan. Client identifies coping skills that can help her today such as going outside and talking with positive supports. Client shared she also plans to set boundaries with her boyfriend's mom. Client reported although she is anxious about work, she can view it in a positive as it gets client out of the house and she recognizes the job is temporary. Risks/Concerns:: Client denies any suicidal ideations, plan, and intent as of 02/23/19. Client shared after her last hospitalization she had an epiphany that I don't want to kill myself. Client reports ability to maintain safety. Client continues to report poor appetite. Progress Toward Goals/Plan:: Client's second week in IOP. Client reports she likes the peers and the groups. Client presents with exacerbation of symptoms today due to conflict at home and with a friend?s ex. Client continues to not have an appetite since last Saturday and currently endorses ruminative anxiety, auditory hallucinations, a depressed mood, and difficulty concentrating. Client has awareness that if she does not use coping skills she will further escalate her symptoms. Client receptive to this therapist calling client?s pillowcase turner to collaborate on housing resources. Client to continue IOP to prevent further decompensation and increase emotional regulation skills. Time Stopped:: 11:20
--- NOTE | 2019-02-26 09:05 | BH.SGPN.GN ---
Behaviors/Verbalizations/Mental Status: [] Eye contact is good. Motor activity is appropriate. Appearance is neat. Speech is Appropriate. Mood is anxious. Affect is congruent. Restless throughout group AEB by constant toe-tapping. Thoughts are linear and logical. No evidence of psychosis. Reviewed daily check in sheet and no reports of suicidal ideations or intent. Client Response/Progress/Benefit: [] Pt was an active participant in group discussions. Shared with the group issues with an ulcer which has been impacting her appetite and overall mood. Reports she has not been eating due to a metallic taste and GI issues. Reports that she has lost 115 lbs in 6 months. States that she recently noticed blood in her vomit. Has an upcoming physician appointment. She has began to eat more consistently eating at least 1 meal per day. She recently spoke with heel caser and she is hoping to get some independent housing stating that a big stressor for her was relying on her BF parents to care for her. Also recently started a full-time job which she stats is miserable however pays well. Emotions have been ok utilizing skills and relying on support. Progress noted as pt reports improved functioning. Benefited from group feedback, support, and encouragement. Will continue in IOP to prevent decompensation, stabilize mood, and increase coping skills. Narrative Note: []
--- NOTE | 2019-02-26 10:12 | BH.SGPN.GN ---
Behaviors/Verbalizations/Mental Status: [Pt alert and oriented, casually dressed, appropriate grooming - not wearing makeup which differs from usual baseline. Eye contact good. Motor activity WNL. Speech appropriate rate/tone. Affect congruent, mood dysthymic and anxious. Thoughts linear, logical, no signs of hallucinations or delusions.] Client Response/Progress/Benefit: [Pt responded well to session, actively listening and providing input during discussion. Pt connected with the topic of communication, indicated that she has had difficulties in effectively communicating with supports. Pt worked with group to identify potential communication potholes impacting ability to engage with others. She noted that not wanting to be a burden and fear of repercussion can impact effectiveness of communication. She helped the group discuss the different communication styles including the payoffs and costs of each. Pt discussed that aggressive communication characteristics include invading personal space and blaming language. Pt appeared to benefit from increasing awareness of how communication impacts mental health. Progress noted in ability to engage with the group and begin connecting materials to own life AEB personal examples provided regarding communication with supports. Recommended to continue IOP to promote healthy change behaviors, increase use of coping skills for depression and anxiety, and prevent decompensation. ] Narrative Note: []
--- NOTE | 2019-02-27 09:05 | BH.SGPN.GN ---
Behaviors/Verbalizations/Mental Status: [] Eye contact is good. Motor activity is appropriate. Appearance is casual. Speech is Appropriate. Mood is anxious. Affect is congruent. Thoughts are linear and logical. No evidence of psychosis. Reviewed daily check in sheet and no reports of suicidal ideations or intent. Constantly rocking back and forth. Restless. Client Response/Progress/Benefit: [] Pt was an active participant in group discussion. Provided appropriate feedback. Emotion for today is depressed. Shared that she is struggling at work due to certain co-workers and the demands of the job. 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 States I'm left alone with my thoughts for 8 hours ... which is bad. Begins to ruminate or recall negative past events. Numerous intrusive thoughts which she reports she is having a difficulty time managing. Group provided feedback and some suggestions to utilize to distraction and change thoughts. Shared several poor interactions with a co-worker. Typically these would result in poor self-confidence and poor self-esteem however due to encouragement from therapist assertively stood up for herself which seemed to resolve the situation. She was proud of herself for doing this. Will continue in IOP to prevent decompensation, maintain safety, and stabilize mood. Narrative Note: []
--- NOTE | 2019-02-27 10:10 | BH.SGPN.GN ---
Behaviors/Verbalizations/Mental Status: [] Eye contact is good. Motor activity is appropriate. Appearance is casual. Speech is Appropriate. Mood is depressed. Affect is flat. Thoughts are linear and logical. No evidence of psychosis. Client Response/Progress/Benefit: [] Pt was an active participant in group discussion. Attentive during psycho-education on boundaries. Worked with fellow group members to define what it means to set up a boundary. Group identified what happens when we have poor boundaries which includes; burn-out, people taking advantage of you, people pleasing, and decreased time for ourself and our issues. Identified what the result of rigid boundaries would be which includes; no close relationships, isolation, and loneliness. Attentive during education on the types of boundaries which include; physical, emotional, intellectual, sexual, material, and time. Group also identified the purpose of healthy boundaries as they can; remove toxic relationships, protect relationships by developing clear expectations, give us permission to care for ourselves, help us develop and have healthy connections, makes us feel safe, and helps protect us from taking on other people's stressors. Benefited from group by increasing education and aware of boundaries and how they impact mental health. Will continue in IOP to maintain safety, prevent decompensation, and decrease depression Narrative Note: []
--- NOTE | 2019-02-27 11:15 | BH.SGPN.GN ---
Behaviors/Verbalizations/Mental Status: []Client alert and oriented, disheveled appearance. Eye contact good. Motor activity restless-shaking her leg. Speech within normal limits. Affect flat, mood depressed. Thoughts linear, logical, no signs of hallucinations or delusions. Client Response/Progress/Benefit: []Client responded well to session, participating throughout session. Client further processed the self-assessment activity and participated in the discussion of the different boundary setting styles. Client reported ?I realize I?m at the far end of the continuum and that?s depressing.? The group helped client reframe her self-judgement thoughts. Client identified herself to the porous boundary style. Client reported she would do ?anything for anyone? and that she is afraid to say no to people for fear she will lose them. Client shared her mental health is negatively impacted because she takes on other people?s issues and feels overwhelmed and burnout. Client able to help the group identify characteristics of healthy boundaries such as saying no when appropriate, knowing one?s limits, and stating clear expectations. Client appeared to benefit from increasing awareness of her personal boundary style and from learning ways to increase healthy boundaries. Progress noted as client?s symptoms have decreased from earlier in the week. Client continues to present with a depressed mood, anxiety, and mood instability.
--- NOTE | 2019-03-02 09:05 | BH.SGPN.GN ---
Behaviors/Verbalizations/Mental Status: []Client alert and oriented, neatly dressed and groomed-wearing makeup. Eye contact good. Motor activity restless. Speech within normal limits. Affect congruent to topics being discussed, mood euthymic, anxious. Thoughts linear, logical, no signs of hallucinations or delusions. Reviewed client?s symptom tracker, no risk for suicidal ideation, plan, or intent as of 03/02/19. Client Response/Progress/Benefit: []Client responded well to session, restless, but attentive throughout. Client reports feeling ?anxious? today. Client shared her current stressor is that she felt paranoid yesterday. Client did not know her trigger, but she reported coping with her paranoia by talking with supports. Client identified her positives to be challenging negative thoughts and having ?the best birthday I?ve ever had.? Client appeared to benefit from connecting with peers and reflecting on her use of coping skills. Progress noted in client?s increased insight to negative thoughts, but she continues to struggle with emotional dysregulation. Will continue IOP to prevent decompensation and improve daily functioning.
--- NOTE | 2019-03-02 10:15 | BH.SGPN.GN ---
Behaviors/Verbalizations/Mental Status: [] Eye contact is good. Motor activity is appropriate. Appearance is casual. Speech is Appropriate. Mood is depressed. Affect is flat. Thoughts are linear and logical. No evidence of psychosis. Client Response/Progress/Benefit: [] Pt was an active participant in group discussion and activity. Attentive during psychoeducation. Worked with the group to identify benefits to making changes in our lives which included; growth, new opportunities, new experiences, improved relationships, getting ourself out of our comfort zones, increasing our adaptability, and building confidence. Group then identified barriers to change or what keeps us from making changes which included; change can be risky, fear of the unknown, fear of failure, negative thinking, what if thinking, anxiety, and change is scary. Pt participated along with group in activity where they identified and discussed the emotions related to change. Benefited from increased awareness and understaging of emotions, benefits, and barriers related to change. Will continue in IOP to maintain safety, provide support, and prevent decompensation Narrative Note: []
--- NOTE | 2019-03-02 11:17 | BH.SGPN.GN ---
Behaviors/Verbalizations/Mental Status: [Pt alert and oriented, casual dress, grooming appropriate. Eye contact good. Motor activity appropriate. Speech within normal limits. Affect congruent, mood euthymic, anxious. Thoughts linear, logical, no signs of hallucinations or delusions.] Client Response/Progress/Benefit: [Pt responded well to session, actively listening throughout discussion as well as providing insight and asking appropriate questions. Participated in the challenge activity and helped the group process barriers associated with making change. Pt noted negative self-talk as a barrier, whereas creating a plan and actively communicating helped the group adapt to change. Pt appeared to connect with discussion regarding overcoming the costs of change by identifying potential benefits via decisional balance sheet. Identified a change she would like to make to improve mental health. Pt?s goal is to increase independence and work towards moving out on her own. Pt reported potential benefits of change as: feeling like less of a burden, increased confidence and hope, as well as feeling a sense of accomplishment. Costs of not making the change included: continuing to feel like a burden and fall into negative thinking, depression, hopelessness, and lack of personal growth. Pt continues to struggle with self-criticism impacting thoughts and distorted thinking patterns. Progress noted in pt ability to identify MH benefits of change, however recommended continued IOP to promote healthy and realistic change behaviors, increase healthy coping skill repertoire, and decrease depression.] Narrative Note: []
--- NOTE | 2019-03-02 14:21 | BH.COMM ---
Communication Note - Communication with Client Communication Note: Therapist spoke with client's case specialist at [facility] to discuss client updates and plan of care moving forward.
--- NOTE | 2019-03-04 09:10 | BH.SGPN.GN ---
Behaviors/Verbalizations/Mental Status: [] Eye contact is good. Motor activity is appropriate. Appearance is casual. Speech is Appropriate. Mood is depressed. Affect is flat. Thoughts are linear and logical. No evidence of psychosis. Reviewed daily check in sheet and no reports of suicidal ideations or intent. Client Response/Progress/Benefit: [] Pt was an active participant in group discussion. Shared with the group that she had to set up a boundary with a family member yesterday. Pt reports that the relationship was getting toxic and negatively impacting her mental health. Reports that this family member was often negative towards pt and her past actions often claiming that pt destroyed the family and should kill herself. She processed the emotions related to this however is proud for setting this boundary. Discussed external stressors which appear to impact her functioning feeling like she can never avoid them. Group provided feedback and offered some suggestions and support. Benefited from feedback and suggestions. Will continue in IOP to maintain safety, provide support, prevent decompensation, and increase healthy coping skills. Narrative Note: []
--- NOTE | 2019-03-04 10:10 | BH.SGPN.GN ---
Behaviors/Verbalizations/Mental Status: [] Eye contact is good. Motor activity is appropriate. Appearance is casual. Speech is Appropriate. Mood is anxious. Affect is congruent. Thoughts are linear and logical. No evidence of psychosis. Client Response/Progress/Benefit: [] Pt was an active participant in group activity and discussion. Pt along with other group members provided input and suggestions when identifying what internal/external forces are and the impact that these forces have on their mental health. Was able to identify strategies used during the experiential activity which could be used in managing internal and external forces such as; creating a plan, teamwork, communication, listening to others, using coping skills when frustrated, learning from mistakes, and recognizing accomplishments. Benefited from increased awareness of difference between internal and external forces on mental health. Will continue in IOP to maintain safety, provided support, and prevent decompensation. Narrative Note: []
--- NOTE | 2019-03-04 11:20 | BH.SGPN.GN ---
Behaviors/Verbalizations/Mental Status: [Pt eye contact good, casually dressed, motor activity appropriate, speech normal rate and tone, mood euthymic and anxious, congruent affect, thoughts linear and intact, no evidence of delusions or hallucinations.] Client Response/Progress/Benefit: [Client receptive of session, listened attentively to peers and provided ideas to discussion. Connected with discussion regarding the positive and negative forces that impact mental wellness and challenged herself to ask for help from the group. Client identified positive forces that aid in progressing toward mental health goals as: ability to cope with her trauma hx and use it as a source of strength, resilience, empathy, and willingness to seek help. Client indicated negative forces that prevent progress include: worrying about other?s problems, not forgiving self/others, and ruminating on her past trauma. Client stated wanting to focus on decreasing impact her trauma hx has on current mental health by trying to focus more on self-love, reminding herself it has made her who she is today, and opening up to others about it, as well as avoiding triggers. Client seemed to benefit from increased awareness of personal positive and negative forces in life and impact they have on mental health and wellness. Client to continue IOP level of care to decrease depression, increase healthy coping and communication, as well as prevent decompensation.] Narrative Note: []
--- NOTE | 2019-03-04 14:22 | BH.COMM_ITS ---
Communication Note - Communication with Client Communication Note: Therapist spoke with client's ed case manager at [facility] to discuss client updates and plan of care moving forward.
--- NOTE | 2019-03-05 09:10 | BH.SGPN.GN ---
Behaviors/Verbalizations/Mental Status: [] Eye contact is good. Motor activity is appropriate. Appearance is casual. Speech is Appropriate. Mood is depressed/irritable. Affect is flat. Thoughts are linear and logical. No evidence of psychosis. Reviewed daily check in sheet and no reports of suicidal ideations or intent. Client Response/Progress/Benefit: [] Pt was an active participant in group discussion. Provided appropriate feedback to peers. Pt shared numerous stressors which led to a break down yesterday. Overwhelmed with thoughts are times. Restless. Ruminating with difficulty coping. Group asked about coping skills or strategies to help with current feelings and pt discounted most skills. Group provided suggestions and pt appeared dismissive. She is future-oriented. Looking forward to a music festival this weekend. Believes this will be a good distraction. Regression noted. Pt experiencing stressors and is avoiding learned skills. Benefited from support. Will continue in IOP to prevent decompensation, stabilize mood, and increase consistent use of skills. Narrative Note: []
--- NOTE | 2019-03-05 10:20 | BH.SGPN.GN ---
Behaviors/Verbalizations/Mental Status: []Client alert and oriented, neatly dressed and groomed- wearing makeup and a dress. Eye contact good. Motor activity restless. Speech within normal limits. Affect constricted, mood anxious. Thoughts linear, logical, no signs of hallucinations or delusions. Client Response/Progress/Benefit: []Client responded well to session, engaged in group discussion and activity. Client commented on the quote and shared the reason people do not change is often due to fear of leaving one?s comfort zone. Client agreed with peers, that staying in one?s comfort zone rarely brings about positive change. Client engaged in the discussion of what it means to ?take action? in one?s mental health treatment. Client agreed with peers that to make change, one needs self-awareness and follow through. Client identified things in her life she wants to start taking control over and change. These things included: minimizing, negative thinking, all or nothing ?with managing my emotion,? sleep, and relationships. Client stated if she could start gaining more control over her minimizing and negative thinking, it would help client find more stability and balance in her mental health. Client appeared to benefit from identifying things that are holding her back from mental wellness and learning what it means to ?take action.?
--- NOTE | 2019-03-05 11:25 | BH.SGPN.GN ---
Behaviors/Verbalizations/Mental Status: [Client alert and oriented, casually dressed and groomed. Eye contact good. Motor activity appropriate. Speech appropriate rate and tone. Affect congruent, mood euthymic. Thoughts linear, logical, no signs of hallucinations or delusions.] Client Response/Progress/Benefit: [Client was an active participant AEB client providing some input to discussion and taking notes throughout. Attentive and contributing to discussion of the different zones of taking action as well as the pros and cons of each. Client agreed with peers that to grow and improve mental health, one must step out of their comfort zone, but not take on too much at once to prevent staying stuck but also avoid burnout. Client completed worksheet in which she identified a problem area to focus on, a SMART goal to help work on problem area, and identify additional supports needed to be successful. Client identified she wants to improve her ability to practice self-care. Client identified a small goal which is to practice spending time doing something for herself that is healthy at least 30 minutes once each day. Client stated additional supports needed to be successful with goal which included: creating a plan, reminding herself of importance of self-care in reducing anxiety and depression, reminders, and positive encouragement from supports. Appeared to benefit from creating a small goal to aid in mental health progress. Will continue IOP tx to promote use of healthy coping skills, improve emotional regulation skills, reduce depression, and prevent decompensation.] Narrative Note: []
--- NOTE | 2019-03-05 14:28 | BH.MDN ---
Multi-Disciplinary Note - Note 30-min Individual Time Started:: 12:26 Date: 03/05/19 Purpose of session/treatment goals addressed:: The purpose of this session was to address current symptoms, stressors, and negative thoughts that reinforce anxiety. Another goal was to identify self-care and boundary goals for this weekend. Eye Contact:: Good Motor Activity:: Restless - shaking her leg throughout session Appearance:: Neat - makeup done and dressed up Speech:: Appropriate Mood:: Euthymic, Anxious Affect:: Congruent Thoughts:: Racing - ruminations and anxious thoughts, No evidence of hallucinations/delusions noted Staff Interventions:: Therapist used active listening and open-ended questions to explore client?s current symptoms, stressors, and negative thoughts. Therapist used solution focused strategies to help client problem-solve her current stressors and combat distortions that reinforce anxiety. Therapist used strengths perspective to empower client on her ongoing demonstration of resilience and use of coping skills. Therapist helped client gain awareness of the consequences of using unhealthy coping skills, not having boundaries, and not balancing self-care this weekend. Therapist helped client set small goals for the weekend to promote mental wellness. Client Response:: Client responded well to session, open to meeting with therapist. Client reported her mood has improved since last week and client shared ?crap keeps going on, but I?m handling it.? Client discussed the ongoing issues with client?s best friend?s baby-daddy.? Client was able to process and challenge anxious, distorted thoughts more quickly this week. Client reported she is less anxious about herself getting in trouble, she is worried about her friend getting in trouble. After processing, client able to acknowledge she has done all she can to help her friend and it okay to set boundaries to benefit mental health. Client could identify realistic alternative outcomes rather than assuming worst case scenarios. Client reported she wants to continue to set emotional boundaries and be able to step back when she needs time to manage her own emotions. Client receptive to practicing this over the weekend. Client shared she is stressed about work and stated ?I can?t stay at that job.? Client stated her coworkers are mean to her and she is ?in my head? the entire time she is at work. 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 Client will be off work tomorrow and this weekend for a concert. Client recognized this will help her ?refill my cup.? However, client reported she has not been engaging in consistent self-hygiene as shown by her inconsistent sleep, eating, and evening pill compliance. Client able to identify consequences of not taking time for self-care and self-hygiene this weekend and was willing to set goals for today and this weekend. Risks/Concerns:: Client denies any suicidal ideations, plan, and intent as of 03/05/19. Progress Toward Goals/Plan:: Since last session, client reports improved mood and progress towards treatment goals. Client?s affect, mood, and outlook have all improved this week and she reports feeling ?better than I?ve felt in a while.? Client stated belief she is managing her stress better. Client shared she has been talking with her supports, using emotional regulation skills to prevent impulsive behaviors, and has been more consistent with her medications. Client reported belief she wants to find a new job, because her current one is negatively impacting her mental health. Client continues to struggle with consistent appetite, negative thoughts, and variable sleep. Client also recognizes she continues to take responsibility for solving other people?s issues, which causes client to feel overwhelmed. Client receptive to goal setting and she will continue IOP next week. Time Stopped:: 12:56
--- NOTE | 2019-03-09 09:15 | BH.SGPN.GN ---
Behaviors/Verbalizations/Mental Status: []Client alert and oriented, casually dressed and groomed. Eye contact good. Motor activity restless. Speech within normal limits. Affect constricted, mood anxious. Thoughts linear, logical, no signs of hallucinations or delusions. Reviewed client?s symptom tracker, no risk for suicidal ideation, plan, or intent as of 03/09/19. Client Response/Progress/Benefit: []Client responded well to session, engaged and attentive throughout. Client reports feeling ?anxious? today and was restless throughout session. Client stated she had a good weekend as client went to a concert with her boyfriend and friend. Client reported ?I got offered a lot of drugs and I didn?t take them? which was one of client?s mental health wins today. Client?s other mental health win was that she used deep breathing and grounding to cope with feeling anxious and panicked at the concert. Client?s current stressor is that she did not get a lot of sleep at the concert and the large crowd triggered anxiety. Client reports she plans to spend time outside today to calm herself. Appeared to benefit from reflecting on her progress in turning down substances. Will continue IOP as she continues to struggle with mood instability, erratic sleep, and difficulty regulating her emotions.?
--- NOTE | 2019-03-09 10:20 | BH.SGPN.GN ---
Behaviors/Verbalizations/Mental Status: []Client alert and oriented, casually dressed and groomed. Eye contact good. Motor activity restless. Speech within normal limits. Affect congruent, mood anxious. Thoughts linear, logical, no signs of hallucinations or delusions. Client Response/Progress/Benefit: []Client responded well to session, participating in discussion and activity. Client appeared to connect with the topic of personal pitfalls and how they can prevent mental health progress. Client shared ?pitfalls can be unexpected? and they can be forms of self-sabotage. Client identified examples of pitfalls such as isolation, not using coping skills, and negative self-talk. Client reported self-awareness is gardner in avoiding personal pitfalls and it ?keeps us present.? Client participated in the group activity and connected that without communication and self-awareness, it is nearly impossible to avoid pitfalls. Client recognized that when the group got close to a pitfall they became reactive and impulsive at times. Client shared this relates to life. Client appeared to benefit from increasing self-awareness of how pitfalls impact mental health. Client is demonstrating progress as shown by her report of improved self-acceptance. Client to continue IOP tx as she continues to struggle with maintaining consistent mood stability.?
--- NOTE | 2019-03-09 11:20 | BH.SGPN.GN ---
Behaviors/Verbalizations/Mental Status: []Client alert and oriented, casually dressed and groomed. Eye contact good. Motor activity restless. Speech within normal limits. Affect constricted, mood anxious. Thoughts linear, logical, no signs of hallucinations or delusions. Client Response/Progress/Benefit: []Client was attentive and an active participant in group discussion. Client completed a worksheet where she identified her own personal pitfalls. Personal pitfalls included: giving into the voices client hears, mind-reading, feelings of inadequacy, and obsessive thinking. Group worked together to identify strategies to overcome personal and general pitfalls which included; setting small goals, positive self-talk, A.C.E, looking at evidence to challenge negative thoughts, mindfulness, self-reflection, and practicing self-compassion. Client identified one pitfall she wants to work on preventing and one coping skill to help client do this. Client?s pitfall was obsessive thinking and her coping skill was to practice setting small goals and positive self-talk. Benefited from identifying personal and general pitfalls and strategies to over these pitfalls. Client has demonstrated progress in increasing self-awareness and can continue to work on emotional regulation skills.
--- NOTE | 2019-03-11 09:10 | BH.SGPN.GN ---
Behaviors/Verbalizations/Mental Status: [Pt alert and oriented, casual dress - wearing a dress which indicates increase effort in attire compared to baseline, grooming appropriate. Eye contact good. Motor activity appropriate. Speech within normal limits. Affect congruent, mood dysthymic. Thoughts linear, logical, no signs of hallucinations or delusions. Reviewed client?s symptom tracker, reports suicidal ideation at a 0/5, denies plan, or intent as of today.?] Client Response/Progress/Benefit: [Pt was an active participant in group discussion. Emotion for today is numb. Despite indicated struggles with mental health, Pt identified some mental health wins which included pushing herself to look for applications for potential new employment rather than isolating and ruminating on negative prior to going to her current job. Additional win noted as making strides to make decisions for herself independently. States her current stressor as ?work? and toxic co-worker?s she is required to be around while in the workplace. Noted that although this is a stressor she is beginning to identify and take steps to change her current circumstances. Identified importance of self-awareness and remembering to focus on the small positive in the day. Benefited from group support and encouragement. Will continue in IOP to prevent decompensation, improve daily functioning, reduce anxiety and depression, and continue to promote healthy change behaviors.] Narrative Note: []
--- NOTE | 2019-03-11 10:18 | BH.SGPN.GN ---
Behaviors/Verbalizations/Mental Status: [Client alert and oriented, casually dressed and groomed. Eye contact fair to good. Motor activity appropriate. Speech within normal limits. Affect congruent, mood dysthymic, anxious. Thoughts linear, logical, no signs of hallucinations or delusions.] Client Response/Progress/Benefit: [Client responded well, more actively contributing to discussion than in prior group. Client appeared to connect with the topic of fear of failure. Client stated failure can be a means of learning what needs to change or what isn?t working, but that this is hard to do when you are directly faced with failure. Client agreed with fellow participants who indicated that by focusing only on past failures and mistakes it can lead to negative thinking and giving up. Identified an example of a time she was able to learn how strong she truly is from a past failure. Group identified the impacts of fear of failure on mental health which included: not trying, low self-esteem, all or nothing thoughts, avoidance, embarrassment, and increased mental health symptoms. Client agreed with peers that in order to move past failure it is important to challenge one?s perspective on failure and learn to redefine it in more positive terms. Client seemed to benefit from increased awareness of how fear of failure can impact mental health. Client to continue IOP tx to promote use of healthy coping skills, further decrease depressive and anxiety related symptoms, improve self-esteem, and prevent decompensation.] Narrative Note: []
--- NOTE | 2019-03-11 11:20 | BH.SGPN.GN ---
Behaviors/Verbalizations/Mental Status: [] Eye contact is good. Motor activity is appropriate. Appearance is casual. Speech is Appropriate. Mood is anxious. Affect is congruent. Thoughts are linear and logical. No evidence of psychosis. Client Response/Progress/Benefit: [] Pt was an active participant in group activity. Completed fear of failure worksheet. Identified that fear of failure is keeping her from making progress, finding purpose, and finding motivation. Identified barriers to overcoming fear of failure as her lack of motivation, fear of the unknown, stress, self-sabotage, negative thought patterns, people pleasing, and anxiety. Things that she can do to overcome fear of failing include; telling myself this is temporary, remember I'm stronger b/c of struggle, remember end result is worth it, affirmations, and rewarding self for small progress. Benefited from identifying the impact that fear of failure has had on her life and developing strategies to overcome this. Narrative Note: []
--- NOTE | 2019-03-12 09:10 | BH.SGPN.GN ---
Behaviors/Verbalizations/Mental Status: [] Eye contact is good. Motor activity is appropriate. Appearance is disheveled. Speech is Appropriate. Mood is depressed. Affect is flat. Thoughts are linear and logical. No evidence of psychosis. Reviewed daily check in sheet and no reports of suicidal ideations or intent. Client Response/Progress/Benefit: [] Pt participated in group discussions. Provided appropriate feedback. Shared that she had only gotten 3 hours of sleep last night. Work continues to be a big stressors as she hates her job as well as her co-workers. Future-oriented. 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 Due to sleep appeared depressed and distant however again reports being hopeful. Progress noted. Benefited from group support and encouragement. Will continue in IOP to maintain safety, stabilize mood, provide support, and prevent decompensation. Narrative Note: []
--- NOTE | 2019-03-12 15:02 | BH.MDN ---
Multi-Disciplinary Note - Note 45-min Individual Time Started:: 10:26 Date: 03/12/19 Purpose of session/treatment goals addressed:: The purpose of this session was to address current symptoms, stressors, and negative thoughts that reinforce anxiety. Another goal was to review healthy coping skills. Eye Contact:: Good Motor Activity:: Appropriate Appearance:: Neat Speech:: Appropriate Mood:: Euthymic, Anxious Affect:: Full Thoughts:: Linear, Logical, No evidence of hallucinations/delusions noted Staff Interventions:: Therapist used active listening and open-ended questions to explore client?s current symptoms, stressors, and negative thoughts. Therapist used solution focused strategies to help client problem-solve strategies to manage her current anxiety about seeing her grandma and combat distortions that reinforce anxiety. Therapist used strengths perspective to empower client on her ongoing demonstration of resilience and use of coping skills. Therapist helped client set small goals for the week to promote self-awareness and regulation of emotions. Client Response:: Client responded well to session, open to meeting with therapist. Client reported her mood has improved since last week and client shared ?things are finally coming together.? Client reports fear that her positive mood and situation will not last. Client recognizes this belief is due to past experiences and distorted thinking. Client able to combat these distortions with help of therapist. Client reports use of mindfulness which has helped client manage anxiety better. Client stated she is visiting her grandma this weekend which is triggering anxiety. Client reported ?she doesn?t really deserve to be in my life, but she?s the last connection I have to my real family.? Client and therapist processed the pros and cons of boundary setting and strategies that can help client manage her anxiety this weekend. Client?s boyfriend and best friend are going with client which is a supportive factor. Client shared she is stressed about work and stated, ?I can?t stay at that job.? Client stated she has applied to two jobs and is hopeful that one will work out for her. Client shared her behavioral health case manager has been helping her apply for jobs, housing, and disability. Client continues to struggle with engaging in consistent self-hygiene as shown by her inconsistent sleep, but she reports her medication compliance and eating have improved. Risks/Concerns:: Client denies any suicidal ideations, plan, and intent as of 03/12/19. Client's appetite has increased which is positive. However, client continues to report poor sleep of a few hours a night. This could be a warning sign for a manic episode. Progress Toward Goals/Plan:: Client continues to report improvement towards treatment goals and reports overall improved mood. Client stated belief she is ?more stable? which excites and worries client as in the past good times did not last for long periods of time. Client shared she has been talking with her supports, using mindfulness, and has been more consistent with her medications. Client is meeting with her behavioral health case manager today to explore work options, housing, and applying for disability. Client continues to struggle with variable sleep and application of coping skills. Client acknowledges that she has not been as consistent with keeping from of her moods, but she is willing to practice this throughout the week. Client receptive to goal setting and she will continue IOP next week. Time Stopped:: 11:08
--- NOTE | 2019-03-13 15:02 | BH.MDN_ITS ---
Multi-Disciplinary Note - Note 45-min Individual Time Started:: 10:26 Date: 03/12/19 Purpose of session/treatment goals addressed:: The purpose of this session was to address current symptoms, stressors, and negative thoughts that reinforce anxiety. Another goal was to review healthy coping skills. Eye Contact:: Good Motor Activity:: Appropriate Appearance:: Neat Speech:: Appropriate Mood:: Euthymic, Anxious Affect:: Full Thoughts:: Linear, Logical, No evidence of hallucinations/delusions noted Staff Interventions:: Therapist used active listening and open-ended questions to explore client?s current symptoms, stressors, and negative thoughts. The rapist used solution focused strategies to help client problem-solve strategies to manage her current anxiety about seeing her grandma and combat distortions that reinforce anxiety. Therapist used strengths perspective to empower client on her ongoing demonstration of resilience and use of coping skills. Therapist helped client set small goals for the week to promote self-awareness and regulation of emotions. Client Response:: Client responded well to session, open to meeting with therapist. Client reported her mood has improved since last week and client shared ?things are finally coming together.? Client reports fear that her positive mood and situation will not last. Client recognizes this belief is due to past experiences and distorted thinking. Client able to combat these distortions with help of therapist. Client reports use of mindfulness which has helped client manage anxiety better. Client stated she is visiting her grandma this weekend which is triggering anxiety. Client reported ?she doesn?t really deserve to be in my life, but she?s the last connection I have to my real family.? Client and therapist processed the pros and cons of boundary setting and strategies that can help client manage her anxiety this weekend. Client?s boyfriend and best friend are going with client which is a supportive factor. Client shared she is stressed about work and stated, ?I can?t stay at that job.? Client stated she has applied to two jobs and is hopeful that one will work out for her. Client shared her case monitor has been helping her apply for jobs, housing, and disability. Client continues to struggle with engaging in consistent self-hygiene as shown by her inconsistent sleep, but she reports her medication compliance and eating have improved. Risks/Concerns:: Client denies any suicidal ideations, plan, and intent as of 03/12/19. Client's appetite has increased which is positive. However, client continues to report poor sleep of a few hours a night. This could be a warning sign for a manic episode. Progress Toward Goals/Plan:: Client continues to report improvement towards treatment goals and reports overall improved mood. Client stated belief she is ?more stable? which excites and worries client as in the past good times did not last for long periods of time. Client shared she has been talking with her supports, using mindfulness, and has been more consistent with her medications. Client is meeting with her case monitor today to explore work options, housing, and applying for disability. Client continues to struggle with variable sleep and application of coping skills. Client acknowledges that she has not been as consistent with keeping from of her moods, but she is willing to practice this throughout the week. Client receptive to goal setting and she will continue IOP next week. Time Stopped:: 11:08
--- NOTE | 2019-03-17 09:11 | BH.SGPN.GN ---
Addendum entered and electronically signed by Lucita Bar LSW 03/18/19 15:16: Note Amended to include pt progress Note. Saved by error prior to completion. Pt semi-engaged in group discussion, receptive of feedback provided by group though mostly passive during discussion. Emotion for today is overwhelmed and pt appearing visibly anxious AEB shaking leg, rubbing face with hands, moving around in chair. Pt indicated that current emotion is due to experiencing a recent manic episode and decreased sleep. She indicated that this often causes increased impulsivity and anxiety, however she has done well to prevent engaging in unhealthy coping. Pt discussed difficulties focusing at work due to mental health sx and racing thoughts which she reports led to increased criticism from her boss. Pt reports she is not concerned about this however as she has secured another job at a [employer] and can therefore quite her current job which she feels is toxic to her mental health. Pt described that this was a ?mental health win? as she will no longer be in a high stress and anxiety provoking environment. Pt appears to continue to struggle with minimization and avoidance of when in uncomfortable or stressful situations, encouraged to increase distress tolerance skills. She went on to share successfully visiting with her grandmother despite this being a potentially tense or uncomfortable setting. She shared that expressing her needs and boundaries was helpful. Although her grandmother did not fully respect them, pt felt that verbalizing her needs was empowering as well as having the support of a friend with her. Progress noted in pt ability to challenge negative thoughts and focus on positive experiences in the moment. Benefited from reflecting upon treatment goal progress and group support. Recommended continued IOP tx to promote continued progress, reinforce coping skills, and prevent decompensation. Original Note: Behaviors/Verbalizations/Mental Status: [Pt alert and oriented, casual dress, grooming appropriate. Eye contact good - at times appearing to be tearful. Motor activity restless. Speech within normal limits. Affect congruent, mood depressed, anxious. Thoughts linear, logical, -at times appearing distracted by own thought, no signs of hallucinations or delusions. Reviewed client?s symptom tracker, denies SI, plan, or intent as of today.] Client Response/Progress/Benefit: [] Narrative Note: []
--- NOTE | 2019-03-17 10:18 | BH.SGPN.GN ---
Behaviors/Verbalizations/Mental Status: []Client alert and oriented, casually dressed and groomed. Eye contact good. Motor activity restless-shaking leg. Speech within normal limits. Affect congruent, mood anxious, irritable. Thoughts linear, logical, no signs of hallucinations or delusions Client Response/Progress/Benefit: []Client responded well to session, active participant and attentive throughout. Client indicated connecting with the topic of cognitive distortions and shared ?your mood impacts automatic thoughts.? Client contributed to the discussion of how negative thoughts impact one?s mental health and relationships. Client stated that cognitive distortions reinforce anxiety and depression, causes unrealistic expectations, and decreases self-esteem. Client contributed as the group defined and reflected upon various types of distortions. Client was an active participant in the group activity and provided ideas to peers. Client benefitted from increasing awareness of cognitive distortions and how they can impact emotions and behaviors. Progress noted as client reports she has been challenging negative thoughts when they pop into her head. Client to continue IOP as she reports ongoing difficulty with regulating emotions and managing stress.
--- NOTE | 2019-03-17 11:18 | BH.SGPN.GN ---
Behaviors/Verbalizations/Mental Status: []Client alert and oriented, casually dressed and groomed. Eye contact good. Motor activity restless-leg shaking. Speech within normal limits. Affect constricted, mood neutral. Thoughts linear, logical, no signs of hallucinations or delusions Client Response/Progress/Benefit: []Client responded well to session, engaged throughout session. Client engaged in the activity and made the connection that challenging and replacing cognitive distortions takes awareness, time, and effort. Shared connecting with distortions of labeling, personalizing, and all or nothing thinking. Client helped the group practice challenging the example cognitive distortions and did well to identify evidence against negative thoughts. Client assisted the group in learning ways to combat negative thinking. Client worked on challenging her own distorted thoughts of ?I?m worthless, nobody cares? to ?I have a lot of people who love me, I?m worth it to them.? Client stated she wants to work on focusing on how far she has come rather than focus on what she has not accomplished yet. Appeared to benefit from practicing thought challenging and gaining awareness of different strategies to combat distortions. Progress noted as client reports improvement with challenging her thoughts, but she continues to struggle with emotional dysregulation.
--- NOTE | 2019-03-19 10:05 | BH.SGPN.GN ---
Behaviors/Verbalizations/Mental Status: [Pt alert and oriented, eye contact good, casually dressed, appearance appropriate, motor activity appropriate, speech normal rate and tone, mood euthymic, congruent affect, thoughts linear and intact, no evidence of delusions or hallucinations.] Client Response/Progress/Benefit: [Client engaged participant as shown by client?s contribution to discussion and helpful insight. Client participated in the discussion of the common myths about self-care including self-care is selfish, easy, makes us weak, and always fun. Client worked with group to debunk the myths about self-care. Client stated she believes self-care is essential in order to maintain stability and can sometimes look like just taking care of basic needs. Discussed that without self-care you are more likely to fall into negative thought and coping patterns. Client seemed to benefit from increased awareness of the importance of self-care. Client showing progress as shown by continued increase in engagement and insight provided in group, though continues to struggle with consistent skill application outside tx environment. Will continue tx to identify and challenge distorted thoughts, increase healthy change behaviors outside tx environment, and prevent decompensation.] Narrative Note: []
--- NOTE | 2019-03-19 12:46 | BH.MDN_ITS ---
Multi-Disciplinary Note - Note 30-min Individual Time Started:: 09:28 Date: 03/19/19 Purpose of session/treatment goals addressed:: The purpose of this session was to address current symptoms, stressors, and barriers. Another goal was to review healthy coping skills and identify ways to reduce emotional numbing. Eye Contact:: Good Motor Activity:: Restless Appearance:: Casual Speech:: Appropriate Mood:: Anxious, Dysthymic Affect:: Other - client often laughs and smiles when she is anxious and depres sed. Thoughts:: Linear, Logical, No evidence of hallucinations/delusions noted Staff Interventions:: Therapist used active listening and open-ended questions to explore client?s current symptoms, stressors, and barriers. Therapist used psychoeducation on maintenance cycles to help client gain awareness of how her thoughts and behaviors can reinforce arthur and depression. Therapist gently challenged client to reevaluate her eating and sleeping habits as they continue to negatively impact her mental wellbeing. Therapist explored different emotion al release coping strategies and helped client challenge negative thoughts. Therapist used strengths perspective to empower client on her ongoing demonstration of resilience and communication with her supports. Therapist helped client set small goal for the weekend to draw about her grief, eat each day, and get more sleep. Client Response:: Client responded well to session, open to meeting with therapist. Client reports belief she was manic last week and now she feels depressed. Client shared she plunged into a depressive state after a few days of erratic sleep and heightened energy. Client reported she spent the last few days in bed, but she shared now she is trying to break the cycle by staying busy. Client recently found out a friend from high school completed suicide. Client shared I feel like I'm numbing myself from it as client has not allowed herself to process how she feels about the situation. Client receptive to discussion of the root causes of her emotional numbing and what she can do to reduce emotional numbing. Client receptive to drawing about her grief and writing poems. Client shared she plans to talk with her supports as well. Client continues to struggle with managing anxiety and it manifests in negative thinking, inconsistent self-hygiene, and poor sleeping habits. Client able to challenge some of her anxious thoughts with the help of therapist. Client willing to practice coping skills over the weekend. Risks/Concerns:: Client denies any suicidal ideations, plan, and intent as of 5/30/19. Progress Toward Goals/Plan:: Client continues to report improvement towards treatment goals and reports belief she is coping with her stressors. However, client appears to be minimizing her symptoms as she shared her friend recently completed suicide and stated, ?it is what it is.? Client acknowledges she numbs and makes light of situations to avoid feeling bad. Client shared her sleep continues to be erratic and her eating has been inconsistent. Client reports some consistency with coping skills such as reaching out to her supports and staying busy. However, overall, client demonstrates inconsistent application of coping skills and follow through with her homework. Client starts a new job today which she is looking forward to. Client receptive to goal setting to promote emotional release and she will continue IOP next week. Time Stopped:: 09:55
--- NOTE | 2019-03-20 09:07 | BH.SGPN.GN ---
Behaviors/Verbalizations/Mental Status: [Pt alert and oriented, casual dress, appropriate. Eye contact good, at times appearing tearful. Motor activity restless AEB pt rocking in chair and fidgeting with items in hand. Speech within normal limits. Affect congruent, mood anxious. Thoughts linear, logical, no signs of hallucinations or delusions. Reviewed pt?s dx symptom tracker and pt denies any SI, plan, or intent as of this date] Client Response/Progress/Benefit: [Pt mostly engaged in group, participated during discussion, actively listening throughout; however, at times appearing distracted by own thoughts. Emotion for today is anxious as she is continuing to struggle with processing her grief associated with the recent of a close friend. Pt expressed that not grieving is beginning to worry her. Did well to respond to group support and recognize that the grieving process is different for everyone. Indicated that current ?mental health wins? include going to with her supports rather than sleeping all day like she wanted to. Additionally discussed starting her new job today as a win and went on to describe that this would be a less toxic work environment than previous employer. Pt appeared to benefit from being challenged on her anxious thoughts and expectation regarding how she assumed grief should look. Progress in ability to receive feedback. Pt recommended continued IOP tx to promote coping skill application, reduce unhealthy maintenance behaviors, and prevent decompensation. ] Narrative Note: []
--- NOTE | 2019-03-23 13:46 | BH.TPR ---
Treatment Plan Review Date of Admission:: 02/16/19 Date of Treatment Plan Review:: 03/23/19 Admitting Diagnoses:: Schizoaffective disorder, bipolar type F25.0; DIONICIO; alcohol use disorder; problematic cannabis use Current Diagnoses:: Schizoaffective disorder, bipolar type F25.0; DIONICIO; alcohol use disorder; problematic cannabis use Patient's Response to Treatment:: Client has responded somewhat well to treatment so far in the [facility] program. Client has struggled with consistent application of coping skills and consistent attendance during her time in [facility]. Client has missed scheduled group sessions and has left early at least four days. Client's progress and ability to maintain mood stability may be impacted by client's variable attendance and generalization of coping skills. However, client is a good group member who often provides supportive statements and ideas to group. Additionally, client self-reports that she has been able to manage her life stressors better than she has in the past. On numerous occasions, client has shared I'm way better than I used to be. Client has not been suicidal since starting [facility] and she shared having the realization ?that I don?t actually want to ? which demonstrates progress as client had reported chronic suicidal ideation prior to coming to [facility]. Client continues to demonstrate resilience and has overall maintained a positive outlook on her future. Client was able to leave a job that was toxic to her and start another job. Client also got connected with a adult protective caseworker. Client recognizes that she has ongoing difficulty with maintaining balance, setting boundaries, and managing stress levels. Client is willing to continue working on treatment goals and challenge negative thoughts. Client's DSM-5 scores were unable to be used in her treatment plan review. Status of Current Problems and Symptoms: Client continues to endorse mood symptoms and difficulty regulating her emotions for long periods of time. Client currently reports feeling ?numb? due to the loss of a friend from high school. Client has been presenting with symptoms of anxiety, erratic sleep and appetite, difficulty concentrating, and mood cycling. Client endorses rumination, negative thoughts of self, and restlessness. Client also reports chronic auditory hallucinations that worsen when client does not have a consistent sleep schedule. Lastly, client reports ongoing struggle with interpersonal relationships and setting boundaries. Problem #1 Problem Name:: Pt. increase mood stability and reduce SX due to schizoaffective disorder Status of Goals:: Objective 1-partially complete, ongoing work recommended. Client can identify healthy coping skills that are effective in reducing depression and mood symptoms. However, client continues to self-report inconsistent application of the skills and poor self-care which may hinder her progress. Therapist unable to gather DSM-5 data due to client leaving early on multiple scheduled IOP days. Objective 2-partially complete. Client can identify negative thoughts that reinforce depressive symptoms. However, client struggles to challenge these thoughts without external support. Client does report a more positive outlook more days than not, which demonstrates progress. Team Recommendations:: Treatment team recommends that client continue working towards these treatment goals as she can continue to increase consistent application of healthy coping skills to manage depression and mood symptoms. Client can also benefit from maintaining medication compliance, having a regular sleep schedule, and engaging in healthy lifestyle choices. Client and therapist currently working on creating coping skill plans and increasing emotional regulation coping skills. Problem #2 Problem Name:: Pt. will reduce overall frequency, intensity, and duration of the anxiety Status of Goals:: Objective 1- partially complete. Client can identify different cognitive distortions she experiences that reinforce anxiety and she also reports awareness of coping skills to manage these thoughts. However, as previously mentioned, client self-reports inconsistent application of healthy coping skills. Client does well to challenge anxious thoughts when supports are present, but she struggles to challenge these thoughts on her own. Objective 2-not complete, in progress. Client continues to utilize marijuana as her main coping mechanism for anxiety and PTSD. Client has improved with communicating with her supports and using grounding techniques to prevent panic. Therapist unable to gather client?s DSM-5 data and will follow up in later sessions. Team Recommendations:: Treatment team recommends that client continue working towards these treatment goals as she can continue to increase consistent application of healthy coping skills to manage anxiety. Client can also benefit from boundary setting with supports and engaging in regular self-care/self-hygiene practices.
== END 2019-03-20 23:59 ==
LOC: BHIOP 09:00
PROVIDERS: Family Provider Internal Medicine; PCP Internal Medicine; Referring Provider Psychiatry & Neurology Psychiatry; Visit Provider Psychiatry & Neurology Psychiatry
DX: F25.0 Schizoaffective disorder, bipolar type (principal); F41.1 Generalized anxiety disorder; F12.90 Cannabis use, unspecified, uncomplicated; Z72.89 Other problems related to lifestyle; I10 Essential (primary) hypertension; K21.9 Gastro-esophageal reflux disease without esophagitis; R45.851 Suicidal ideations; Z81.8 Family history of other mental and behavioral disorders
CPT/HCPCS: H0035; 90832; 90834; 90853

== ENCOUNTER → 2019-03-13 17:02 | Outpatient (CLI) | payer BC, SELFPAY ==
[2019-03-13 10:08] VITALS: BMI 30.2
[2019-03-13 19:29] LABS: Chlamydia Trachomatis by PCR Negative (Negative); Neisserai gonorrhoeae by PCR Negative (Negative); Probe Check PASS; Sample Adequacy Control PASS; Specimen Processing Control PASS
[2019-03-20 12:34] LABS: HPV Reflexed? NOT INDICATED
== END ==
PROVIDERS: Family Provider Internal Medicine; PCP Internal Medicine; Referring Provider Nurse Practitioner Women's Health; Visit Provider Nurse Practitioner Women's Health
DX: Z12.4 Encounter for screening for malignant neoplasm of cervix (principal); Z11.3 Encounter for screening for infections with a predominantly sexual mode of transmission
CPT/HCPCS: 87491; 87591; 87624; 88175; G0145

== ENCOUNTER → 2019-03-19 11:16 | Outpatient (CLI) | payer BC, SELFPAY ==
[2019-03-13 10:08] VITALS: BMI 30.2
--- NOTE | 2019-03-19 11:17 | US_ITS ---
STUDY: ULTRASOUND TRANSVAGINAL CLINICAL: Female, 19 years old. IUD placement. TECHNIQUE: Transabdominal and Transvaginal COMPARISON: None. FINDINGS: Normal uterine size measuring 6.8 cm in maximal craniocaudal dimension. There are no myometrial masses. Normal endometrial thickness measuring 4.2 mm. There are no endometrial masses, and there is no fluid in the endometrial cavity. Normal uterine cervix. Normal right ovary, measuring 3.2 x 2.0 x 1.9 cm. There are multiple follicles without a dominant cyst. Normal left ovary, measuring 3.1 x 3.0 x 1.7 cm. There are multiple follicles without a dominant cyst. There is no free fluid in the pelvis. US/Transvaginal Non- IMPRESSION: Within normal limits pelvic ultrasound. Nonvisualization of an intrauterine device. Electronically Signed: Taryn Milan MD at 16:10 EDT Tel , Service support ,
--- NOTE | 2019-03-19 11:17 | US_ITS ---
STUDY: ULTRASOUND TRANSVAGINAL CLINICAL: Female, 19 years old. IUD placement. TECHNIQUE: Transabdominal and Transvaginal COMPARISON: None. FINDINGS: Normal uterine size measuring 6.8 cm in maximal craniocaudal dimension. There are no myometrial masses. Normal endometrial thickness measuring 4.2 mm. There are no endometrial masses, and there is no fluid in the endometrial cavity. Normal uterine cervix. Normal right ovary, measuring 3.2 x 2.0 x 1.9 cm. There are multiple follicles without a dominant cyst. Normal left ovary, measuring 3.1 x 3.0 x 1.7 cm. There are multiple follicles without a dominant cyst. There is no free fluid in the pelvis. US/Pelvic (Non ) IMPRESSION: Within normal limits pelvic ultrasound. Nonvisualization of an intrauterine device. Electronically Signed: Taryn Milan MD at 16:10 EDT Tel , Service support ,
== END ==
PROVIDERS: Family Provider Internal Medicine; PCP Internal Medicine; Referring Provider Nurse Practitioner Women's Health; Visit Provider Nurse Practitioner Women's Health
DX: Z30.431 Encounter for routine checking of intrauterine contraceptive device (principal)
CPT/HCPCS: 76830; 76856; 93976

== ENCOUNTER 2019-03-23 09:00 | Outpatient (RCR) | payer BC, SELFPAY ==
[2019-03-13 10:08] VITALS: BMI 30.2
--- NOTE | 2019-03-23 09:10 | BH.SGPN.GN ---
Behaviors/Verbalizations/Mental Status: [] Eye contact is good. Motor activity is appropriate. Appearance is casual. Speech is Appropriate. Mood is euthymic. Affect is full. Thoughts are linear and logical. No evidence of psychosis. Reviewed daily check in sheet and no reports of suicidal ideations or intent. Client Response/Progress/Benefit: [] Pt was an active participant in group discussions. Emotion for today is overwhelmed. Shared with the group that she attended an graduation alliance party for her bf's family member in another city. Discussed how these types of social events are typically extremely stressful for her and cause a significant about of anxiety. She reports she was experiencing these emotions however performed some behavioral activation and pushed herself to socialize. She was surprised that this actually decreased her anxiety and improved her overall mood. Reports that the alliance party became more fun. Progress noted as she was able to utilize skills and strategies learned during real-life event with positive outcome. Benefited from group support, encouragement, discussions, and feedback. Will continue in IOP to maintain safety and prevent decompensation. Narrative Note: []
--- NOTE | 2019-03-23 11:26 | BH.SGPN.GN ---
Behaviors/Verbalizations/Mental Status: [Eye contact is good. Motor activity is restless. Appearance is casual. Speech is Appropriate. Mood is anxious. Affect is congruent. Thoughts are linear and logical. No evidence of psychosis. ] Client Response/Progress/Benefit: [Pt was an active participant throughout. She did well to participate in group activity and provided input to discussion. Pt actively listening throughout AEB taking notes and providing to group discussion identifying connections between activity and strategies for overcoming barriers to making changes. Pt did well to relate this back to promoting personal mental wellness. Identified a specific change she would like to make for her mental health, barriers to making that change, and a SMART goal to reach that change. Shared she would like to work on increasing her self-esteem by spending 30 minutes each day singing. Pt discussed that this change would help to feel more connected to herself and tap back into activities she is passionate about. Benefited from group as she was able to identify strategies to overcome barriers to change and create a plan for implementing one small change promoting personal growth. Pt set to continue in IOP to promote change behaviors and application of coping skills, prevent decompensation, and stabilize mood.] Narrative Note: []
--- NOTE | 2019-03-23 15:22 | BH.MDN ---
Multi-Disciplinary Note - Note 30-min Individual Time Started:: 10:55 Date: 03/23/19 Purpose of session/treatment goals addressed:: The purpose of this session was to address current symptoms, stressors, and anxious thoughts reinforcing anxiety. Another goal was to set goals to promote emotional wellbeing and communicate boundaries. Eye Contact:: Good Motor Activity:: Restless - shaking leg throughout session Appearance:: Neat Speech:: Rapid Mood:: Anxious Affect:: Congruent Thoughts:: Racing, No evidence of hallucinations/delusions noted Staff Interventions:: Therapist used active listening and open-ended questions to explore client?s current symptoms, stressors, and anxious thoughts. Therapist used psychoeducation on maintenance cycles to help client gain awareness of how her thoughts and behaviors can reinforce arthur and depression. Therapist gently challenged client to reevaluate her eating and sleeping habits as well as her work schedule as they continue to negatively impact her mental wellbeing. Therapist discussed the costs and benefits of communication and boundary setting. Therapist helped client set small goals to promote sleep, emotional release, and healthy boundaries at work. Client Response:: Client responded well to session, open to meeting with therapist. Client shared she did not do her homework of drawing her grief from last session, but she found a different way to cope. Client plans to sing at her friend's memorial to show her respects and allow client to heal. Client shared her new job is going well, but her boundaries are already being tested. Client reported when she started she was told she would be working [employer] and second shift. Client shared they already have me scheduled for 45 hours. Client expressed anxious thoughts about the new job such as ?what if I can?t do it.? With help from therapist, client was able to challenge and replace these negative thoughts with more realistic alternatives. Client reports she continues to struggle with setting boundaries, not only at work, but also with her boyfriend?s mother. Client and therapist talked about the benefits of communicating boundaries, however, client appeared to dismiss them by saying ?she just won?t listen.? Client reported she has been experiencing negative thoughts towards her body, but client stated she is trying to combat those thoughts. Client continues to struggle with erratic sleeping and eating. Client recognizes that her sleep impacts her mental health and functioning. Client willing to set a goal to get at least 4 hours of sleep each night. Client also set goals to talk with her boss today about hours and to sing for 30 minutes each day. Risks/Concerns:: Client denies any suicidal ideations, plan, and intent as of 03/23/19. Progress Toward Goals/Plan:: Client continues to report improvement towards treatment goals and reports belief she is coping with her stressors. Client is showing progress with reframing negative thoughts and trying to find positives in each day. However, client continues to struggle with regulating her emotions, following a consistent sleep schedule, and setting boundaries. Client continues to endorse ruminations that reinforce anxiety and depression. Client reports ongoing hallucinations that become worse when she does not sleep. Additionally, client states she did not take her medication the past two days. Client receptive to goal setting to promote coping skills consistency and she will continue IOP next week. Time Stopped:: 11:31
--- NOTE | 2019-03-25 09:05 | BH.SGPN.GN ---
Behaviors/Verbalizations/Mental Status: []Client alert and oriented, casually dressed. Eye contact good. Motor activity restless. Speech within normal limits. Affect congruent, mood anxious. Thoughts linear, logical, no signs of hallucinations or delusions. Reviewed client?s symptom tracker, no risk for suicidal ideation, plan, or intent as of 03/25/19. Client Response/Progress/Benefit: []Pt engaged in session as shown by pt providing input and openly processing with the group. Emotion for today is anxious. Pt noted mental health positive as being able to mange emotions when had to interact with another individual that she typically doesn't get along with due to past circumstances. Pt stated she was able to regulate her emotions by using positive self-talk and thinking of consequences of going off on the other person. Pt identified an additional positive as going for a 3 mile walk with her best friend. Pt stated on the walk her best friend's mom was driving past her and stopped to tell pt that she will never get better and might as well kill herself. Pt reported she has been able to manage her emotions after those comments were made to her by reminding herself that she is doing better and that the person who said those comments has their won problems. Progress noted in application of thought challenge and focusing on the positive outside of treatment environment. Continued IOP tx recommended to decrease anxiety, prevent decompensation, and continue to challenge distorted thought patterns. Narrative Note: []
--- NOTE | 2019-03-25 10:25 | BH.SGPN.GN ---
Behaviors/Verbalizations/Mental Status: [Client alert and oriented, casually dressed. Eye contact good. Motor activity WNL, some restlessness. Speech appropriate rate/tone. Affect congruent, mood euthymic. Thoughts linear, logical, no signs of hallucinations or delusions.??] Client Response/Progress/Benefit: [Pt was attentive, and an active participant in group discussion AEB reflecting with group on quote as well as providing personal examples of how perspective has impacted her mental health and self-esteem in the past. Pt did well to reflect upon what factors may influence personal perspective and identified past experiences, education about the subject matter, and cultural beliefs. Pt benefited from connecting how perspective can impact mental health and wellness. Identified that a positive perspective can foster openness to new ideas, whereas negative perspective may result in feeling undervalued. She did well to collaborate with the group and identify strategies for overcoming and challenging unhealthy perspective. Reports that ?finding the best of the hard stuff? will aide in development of a more positive perspective. Will continue in IOP to improve symptom management, increase healthy skills application, and continue to promote healthy change behaviors. ] Narrative Note: []
--- NOTE | 2019-03-25 11:26 | BH.SGPN.GN ---
Behaviors/Verbalizations/Mental Status: []Client alert and oriented, casually dressed and groomed. Eye contact good. Motor activity restless-shaking leg and body throughout session. Speech within normal limits. Affect constricted, mood anxious and agitated. Thoughts linear, logical, no signs of hallucinations or delusions. Client Response/Progress/Benefit: []Client responded well to session, attentive and contributing to discussion. Client contributed and took notes as the group discussed the impact perspective has on one?s ability to recognize and utilize strengths. The group identified that a negative perspective causes people to minimize strengths, self-depreciate, and lose confidence in strengths. Client reported ?right now I?m not in a great place mentally so my perspective is negative.? Client able to identify personal strengths she possesses including: creativity, artistic ability, persistence, resiliency, and non-judgmental attitude. Client stated she does not always recognize these strengths though due to minimizing, anxiety and depression, and negative thinking. Client helped the group identify strategies to make strengths easier to access. Some of these strategies included: looking at the big picture, mindfulness, keeping track of wins, and looking at the evidence against negative thoughts. Benefited from acknowledging personal strengths and coming up with strategies to access her strengths. Client currently reporting increased symptoms due to an interpersonal conflict. However, client continues to show progress in reducing the duration of her symptoms and not falling into unhealthy patterns of coping.
--- NOTE | 2019-03-27 14:41 | BH.MDN ---
Multi-Disciplinary Note - Note 30-min Individual Time Started:: 12:00 Date: 03/27/19 Purpose of session/treatment goals addressed:: Pt showed up to IOP 2.5 hours late. Reported horrible morning and wanted some distraction with group. Went into remaining 30 minutes of group and then met with this therapist to process. Eye Contact:: Fair Motor Activity:: Restless Appearance:: Disheveled Speech:: Appropriate Mood:: Anxious, Depressed Affect:: Congruent Thoughts:: Linear, Logical, No evidence of hallucinations/delusions noted Staff Interventions:: Allowed pt to vent. Provided support. Client Response:: Pt shared that there was an accident this AM with her two dogs and one of them got seriously injured. Dog is currently in the ER and she is fearful that it will not survive. Reports very intense and overwhelming. Urban of emotions including anger, sadness, and fear. Allowed pt to vent. She was proud of herself for addressing the crisis. States in the past I would have simply left and avoided it Reports in the past she would run from stress and overwhelming situations. Proud of herself for staying and providing help and care for one of the dogs. She was instrumental in helping. Shaken up and requested to come to group for distraction and process which she reports was beneficial. Has plan for the remainder of the day. Denies any urges to run or hurt herself. Denies any psychosis. Feels that she is managing better than she would have a couple months ago. BF is supportive. Risks/Concerns:: No risks or concerns noted. Denies any suicidal ideations, plan, or intent. Progress Toward Goals/Plan:: Will continue in IOP. Progress noted as she feels that she managed this crisis situation more effetively now than in the past. Addressed and coping with stressors and emotions rather than running from them. Time Stopped:: 12:25
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
--- NOTE | 2019-03-30 11:23 | BH.SGPN.GN ---
Behaviors/Verbalizations/Mental Status: [Client alert and oriented. Appearance is casual, appropriate grooming. Eye contact good. Motor activity WNL, at times appearing restless AEB moving around in seat. Speech appropriate rate and tone. Affect congruent. mood dysthymic. Thoughts linear, logical, no signs of hallucinations or delusions.] Client Response/Progress/Benefit: [Pt provided input and mostly engaged in discussion AEB providing input and taking notes throughout. Pt benefitted from reflecting upon the mental health benefits of taking small actionable steps towards addressing barriers and promoting healthy change in daily life. Indicated planning to change is hard to do when it means addressing own individual barriers. Pt did well to work with the group on completing the example Change Action Plan and applying the skills learned to pt own Action Plan. Pt identified wanting to make strides towards increasing self-confidence. Pt shared this would improve relationships with supports, reduce depression, and continue to willingness to work on her own mental health by increasing belief that she deserves it. Pt shared she would begin with more consistently making time to make art and do other activities that make her feel more in touch with herself. Pt progress noted in ability to identify concrete and realistic steps to addressing barriers to actionable change identified. Recommended continued IOP tx to prevent decompensation, maintain gains, and promote healthy change behaviors.] Narrative Note: []
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
--- NOTE | 2019-04-01 09:10 | BH.SGPN.GN ---
Behaviors/Verbalizations/Mental Status: [] Eye contact is good. Motor activity is appropriate. Appearance is neat. Speech is Appropriate. Mood is tired. Affect is congruent. Thoughts are linear and logical. No evidence of psychosis. Reviewed daily check in sheet and no reports of suicidal ideations or intent. Client Response/Progress/Benefit: [] Pt was active participant in group discussion. Emotion for today is tired. Shared that she woke about 10 minutes before group this AM. Stressed about her work as co-workers as slacking and reportedly smoking weed while on the clock. This has led to increased attention from management on all employees which increases pt's stress. Stress in pt's view is the catalyst to negative thoughts, panic, and other MH symptoms. She is trying to maintain her mood through skills and thought challenging. Benefited from group support, encouragement, discussion, and feedback. Will continue in IOP to prevent decompensation, provide support, and stabilize mood. Narrative Note: []
--- NOTE | 2019-04-02 13:13 | BH.COMM ---
Communication Note - Communication with Client Communication Note: Client no called/no showed for her scheduled IOP group session today. Client reported she forgot she was signed up and is leaving for vacation today. Client reports she is doing well. Client will be missing group next week. Client to continue IOP the week of the April 13.
--- NOTE | 2019-04-09 09:23 | BH.COMM ---
Communication Note - Communication with Client Communication Note: Client is out of town today on vacation and is unable to see IOP psychiatrist. Client has either cancelled or been unable to attend IOP all Fridays in the month of March thus far. Client is established with outpatient psychiatry and has reported no medication issues. Client reports plan to return next week.
--- NOTE | 2019-04-15 09:10 | BH.SGPN.GN ---
Behaviors/Verbalizations/Mental Status: [] Eye contact is good. Motor activity is appropriate. Appearance is casual. Speech is Appropriate. Mood is anxious. Affect is congruent. Thoughts are linear and logical. No evidence of psychosis. Reviewed daily check in sheet and no reports of suicidal ideations or intent. Client Response/Progress/Benefit: [] Pt was active participant in group discussion. Emotions for today is anxious. Shared that her vacation last week was fun and relaxing. Had an [address] to [place] and back. Reports that this was extremely difficulty as she was alone with her thoughts. Reports intrusive thoughts about her past and her family. Has begun to have dreams about reconnection with her sisters. She is struggling with whether its a good idea to reach to her sisters however is unsure how they will respond. Focusing on the good times that they had. She utilized distraction and mindfulness skills to help with introduce thoughts. Reports that she didn't freak out which was a good thing. Denies panic attacks while in the car. Over reports I'm in a good spot. Going back to work today. Benefited from group support, encouragement, and feedback. Will continue in IOP to maintain safety, prevent decompensation, and assist and support pt to utilize skills to manage emotions. Narrative Note: []
--- NOTE | 2019-04-15 13:33 | BH.COMM ---
Communication Note - Communication with Client Communication Note: Client chose to leave IOP group session early today due to a friend being in mental health crisis. Client has verbalized in previous sessions that she often puts other's needs ahead of her own mental health which has been problematic in the past. Therapist encouraged client to set healthy boundaries and stay in group to build coping skills and focus on her goals. Client declined to stay and shared I'd feel more anxious if I stayed...I need to help her. Client to attend group tomorrow and will meet with individual therapist. Client does not present as a danger to herself or others.
--- NOTE | 2019-04-16 09:05 | BH.SGPN.GN ---
Behaviors/Verbalizations/Mental Status: [Eye contact is good. Motor activity is appropriate. Appearance is casual, grooming appropriate. Speech is Appropriate rate and tone. Mood is anxious. Affect is congruent. Thoughts are linear and logical. No evidence of psychosis. Reviewed daily check in sheet and pt denies any active SI, plan, or intent.] Client Response/Progress/Benefit: [Pt responded well to session, engaged throughout and open to processing with the group. Pt indicated current emotion as ?anxious? and discussed that this is due to feeling conflicted about reaching out to her estranged sisters. Appeared to benefit from feedback and support provided by the group. Displayed insight that this decision may need additional time for reflection/consideration to prevent from making an impulsive decision and potentially triggering herself. Pt did well to identify mental health wins as being able to be a support for a friend who was struggling and successfully going to work despite not wanting to. Identified ability to follow through as progress. Pt recommended continued IOP tx to prevent decompensation, and promote ongoing application of healthy coping skills, and reduce depression.] Narrative Note: []
--- NOTE | 2019-04-16 10:10 | BH.SGPN.GN ---
Behaviors/Verbalizations/Mental Status: [] Eye contact is good. Motor activity is appropriate. Appearance is casual. Speech is Appropriate. Mood is anxious. Affect is congruent. Thoughts are linear and logical. No evidence of psychosis. Client Response/Progress/Benefit: [] Pt was an active participant in group discussions. Attentive. Provided insight during processing of quote of the day. The group and pt worked together to identify barriers that keep one from choosing a new and more healthy path to mental wellness which included; temptation ( substance abuse, unhealthy coping skills, toxic relationships), easier and more comfortable to stay on current path, change is difficult, unsure how to make changes or choose different paths, isolation, negative self-talk, emotions, and fear of the unknown. Attentive during psycho-education on the chapters of life. Pt was engaged in group and provided insight into some of the emotions that are associated with the different life chapters. Benefited from increased awareness and education on barriers to choosing new wellness paths and chapters of life. Narrative Note: []
--- NOTE | 2019-04-16 11:10 | BH.SGPN.GN ---
Behaviors/Verbalizations/Mental Status: []Client alert and oriented, disheveled appearance. Eye contact fair. Motor activity appropriate. Speech within normal limits. Affect flat, mood anxious. Thoughts linear, logical, no signs of hallucinations or delusions. Client Response/Progress/Benefit: []Client was an active participant in group discussion. Completed worksheet and willing to share with the group. Client reported belief she is in ?chapter 3? because she has awareness of her pitfalls, warning signs, and coping skills, but she still falls into the ?negative thinking hole.? Client shared to get to the next chapter she wants to be able to challenge her negative thinking on her own without relying on external support. Client identified things she is currently doing that will help her get to the next chapter including; reaching out to supports and communicating needs. Stated she recognizes that relying on her supports to challenge her thoughts is a barrier keeping client stuck. Client identified her goal to get closer to chapter 4 to be communicating her boundaries and writing out the pros and cons to challenge anxious thoughts. Benefited from group by identifying thoughts and behaviors that are keeping her stuck and developing plan to promote progress. Will continue in IOP to reinforce healthy coping skills and increase mood stability.
--- NOTE | 2019-04-16 13:56 | BH.MDN ---
Multi-Disciplinary Note - Note 30-min Individual Time Started:: 12:12 Date: 04/16/19 Purpose of session/treatment goals addressed:: The purpose of this session was to address current symptoms, stressors, and emotional regulation strategies. Other topics included dialectical thinking and decision making skills. Eye Contact:: Good Motor Activity:: Restless - shaking her leg throughout session Appearance:: Casual Mood:: Euthymic, Anxious Affect:: Congruent Thoughts:: Linear, Logical, No evidence of hallucinations/delusions noted Staff Interventions:: Therapist used active listening and open-ended questions to explore client?s current symptoms, stressors, and use of emotional regulation skills. Therapist used cognitive restructuring to help client identifying and challenge distorted thoughts. Therapist used cost/benefit analysis to help client gain insight to the pros and cons of working with her friend. Therapist introduced dialectical thinking and gave client homework to use dialectics to challenge distortions. Therapist and client discussed discharge and aftercare. Client Response:: Client responded well to session, open to meeting with therapist. Client reported vacation was fun and she did well to cope with her mental health symptoms while she was there. Client stated she and her friend had a talk that really changed me. Client shared through this talk she realized that my mental health is beautiful. Client reported thinking this has helped her be more compassionate with herself. Client shared work continues to go mostly well, and that client is trying to help her best friend get a job at client's place of work. Client initially reported mixed feelings about her friend working with her and was willing to discuss the pros and cons. After further discussion, client shared it will be okay and reported client and her friend could come up with a plan to help work go smoothly. Client receptive to learning about dialectical thinking and she read over the worksheet. Client willing to challenge one negative thought a day using dialectic thinking. Risks/Concerns:: Client denies any suicidal ideations, plan, or intent as of 04/16/19. Future oriented throughout session. Progress Toward Goals/Plan:: Client has made strides towards her treatment goals as shown by her report of improved sleep, medication compliance, and increased ability to cope with stressors. Client has been able to maintain a job and she reports improved emotional regulation. Client continues to struggle with consistent self-hygiene, chronic mood symptoms, chronic visual hallucinations, erratic eating, and distorted thinking. However, she is showing progress in challenging thoughts and using supports to process emotions. Client continues to meet criteria for IOP due to ongoing mood symptoms and can benefit from further improving mood stability. Client to call her outpatient counselor to set up an appointment following IOP discharge. Time Stopped:: 12:46
--- NOTE | 2019-04-17 09:00 | BH.SGPN.GN ---
Behaviors/Verbalizations/Mental Status: []Client alert and oriented, disheveled appearance. Eye contact good. Motor activity appropriate. Speech within normal limits. Affect full, mood euthymic. Thoughts linear, logical, no signs of hallucinations or delusions. Reviewed client?s symptom tracker, no risk for suicidal ideation, plan, or intent as of 04/17/19. Client Response/Progress/Benefit: []Client responded well to session, providing supportive statements to peers. Client reports feeling ?optimistic? today. Client shared her mental health win today is that she had a challenging day at work yesterday, but instead of isolating she reached out to her supports and spent time outside. Client stated she completed her individual therapy homework which client reports she is proud of herself for accomplishing. Client?s homework was to utilize dialectical thinking to challenge her negative thoughts. Client reported this was helpful. Client?s current stressor is that she is recognizing warning signs for arthur as client has not slept in two days. Client shared ?I?m just worried about the crash after.? Client able to process and identify coping skills and supports that can help client prevent a major setback or ?crash.? Client appeared to benefit from reflecting on her positives and identifying coping skills. Progress noted in client?s follow through with thought challenging, but she can continue to increase consistent application of coping skills. Will continue IOP to promote gains and increase mood stability.
--- NOTE | 2019-04-17 10:10 | BH.SGPN.GN ---
Behaviors/Verbalizations/Mental Status: [] Eye contact is good. Motor activity is appropriate. Appearance is causal. Speech is Appropriate. Mood is anxious. Affect is congruent. Thoughts are linear and logical. No evidence of psychosis. Client Response/Progress/Benefit: [] Pt participated in group activity and discussions. Group worked together to identify benefits to developing goals which included; helps one grow, improves mental health through purpose, given one something to look forward too or strive for, motivates, keeps one focused, can give a sense of accomplishment, and provides hope for the future/ Group also identified barriers to setting and accomplishing goals which included; fear fo failure, past negative experiences, negative people in our lives, negative thoughts, our emotions (depression, stress, anger, anxiety), trouble getting out of our comfort zone, and our perception or outlooks. Attentive during education on developing SMART goals. Benefited from increase awareness of goal-setting methods. Will continue in IOP to prevent decompensation and maintain gains. Narrative Note: []
--- NOTE | 2019-04-17 10:55 | PN_ITS ---
Progress Note Chief Complaint: [The patient is a 19-year old female who is an active participant in the intensive outpatient mental health treatment program at [facility]. She has a history of schizoaffective disorder, substance abuse and anxiety.] History of Present Illness/Interim History: I found the patient with her head down in the group room while sitting near the front. She complains that she has not slept in the past 2days. Complains of feeling super restless. That she has been ruminating all night about her family, missing her family and wanting to see them again. She has not seen members of her family for the past 3 years. She describes herself as tired, mentally and physically exhausted. However, she also is fidgety and feels restless. She described her mental state as generally better than it was before. She denies any significant depression. She is such that she is handling stress better. She described a peaceful feeling. She said that she is learning to cope with her mental illness better. She is still staying at her boyfriend's house, but said that family and she are butting heads. They want her to move out. She said that the voices are better and she has not heard any recently. She is still seeing the summers opening and closing. She denies any recent messages from the television. She is no longer receiving messages from the television. Her medications are still being managed by her outpatient provider. She thinks that her medicines are helpful. She thinks that the intensive outpatient groups have been helpful. Current Psychiatric Medications: Abilify 10 mg daily, prazosin 2 mg nightly, hydroxyzine 50 mg twice daily as needed Review of Symptoms: Psychiatry: Improving depression, anxiety and psychotic symptoms. She is not suicidal. Her psychotic symptoms have improved. She is cognitively intact. Constitutional: She is overweight and her weight has been steady. Her energy level is low. Mental Status Examination: The patient presents as a pleasant, cooperative woman who is casually dressed and appropriately groomed. She demonstrates fair social skills. Her thoughts are logical and coherent. She reported improving symptoms of depression and anxiety. Her hallucinations have improved. She makes no delusional statements. She is not suicidal. She is cognitively intact. Diagnoses: [] [place]: Schizoaffective disorder, bipolar type; generalized anxiety disorder; alcohol use disorder; problematic cannabis use [place]: Deferred [place] III: Hypertension, GERD Plan: The patient will continue her psychiatric medicines as prescribed by her outpatient provider. She will continue treatment with the intensive outpatient groups. I will see her as needed for follow-up.
--- NOTE | 2019-04-17 11:15 | BH.SGPN.GN ---
Behaviors/Verbalizations/Mental Status: [Pt eye contact good, casually dressed, motor activity appropriate, speech normal rate and tone, mood euthymic and thoughtful, congruent affect, thoughts linear and logical, no evidence of delusions or hallucinations. ] Client Response/Progress/Benefit: [Pt attentive and contributed thoughts to discussion. Worked with group to reflect on challenge activity and make connections between barriers faced and supports used with goal setting in her own life. Engaged in creating her own mental health SMART goal and identified goal as: ?Reframe negative thinking by writing down thoughts and reframing them in a dialectic way 2x a day throughout the weekend?. Client stated this goal will benefit her by increasing self-confidence and improving ability to reduce negative outlook. Pt identified lack of motivation, intrusive thoughts, and lack of time as potential barriers to achieving identified goal. Pt seemed to benefit from identifying a SMART goal and developing ways to overcome potential barriers. Pt reports supports for achieving goal as: Emelina and Messi can hold me accountable, make a pro/con list, and celebrating accomplishments. Pt to [facility] level care due to continue to decrease anxiety and depressive sx, promote application of healthy coping and thought challenging, and prevent decompensation. ] Narrative Note: []
== END 2019-04-19 23:59 ==
LOC: BHIOP 09:00
PROVIDERS: Family Provider Internal Medicine; PCP Internal Medicine; Referring Provider Psychiatry & Neurology Psychiatry; Visit Provider Psychiatry & Neurology Psychiatry
DX: F25.0 Schizoaffective disorder, bipolar type (principal); F41.1 Generalized anxiety disorder; I10 Essential (primary) hypertension; K21.9 Gastro-esophageal reflux disease without esophagitis; F12.90 Cannabis use, unspecified, uncomplicated
CPT/HCPCS: H0035; 90832; 90834; 90853

== ENCOUNTER 2019-04-20 09:00 | Outpatient (RCR) | payer BC, SELFPAY ==
[2019-03-13 10:08] VITALS: BMI 30.2
--- NOTE | 2019-04-20 09:10 | BH.SGPN.GN ---
Behaviors/Verbalizations/Mental Status: [] Eye contact is good. Motor activity is appropriate. Appearance is casual. Speech is Appropriate. Mood is depressed. Affect is flat. Thoughts are linear and logical. No evidence of psychosis. Reviewed daily check sheet with no reports of suicidal ideations or intent. Client Response/Progress/Benefit: [] Pt was an active participant in group counseling. Shared with the group a stressful and anxiety producing situation over the weekend. Talked about her thought, emotions, and perception while in the stressful situation. Discussed her reaction and the skills that she utilized. Overall reports that she is managing life more effectively. Work is a stressor as is drama that is occurring around her. Admits that she gets pulled into these situations however insight into this and how to decrease impact on her mental health. Using skills and challenging distortions and intrusive thoughts however needs reminders and guidance at times from others. Smiling and joking. Progress noted. Benefited from group support, encouragement, and feedback. Will continue in IOP to maintain gains. Plan is to discharge this week. Narrative Note: []
--- NOTE | 2019-04-20 11:12 | BH.SGPN.GN ---
Behaviors/Verbalizations/Mental Status: [Pt alert and oriented, casual dress, grooming disheveled, not bathed. Eye contact good. Motor activity appropriate. Speech within normal limits. Affect congruent, mood euthymic, positive. Thoughts linear, logical, no signs of hallucinations or delusions.] Client Response/Progress/Benefit: [Pt responded well to session, did well to engage in discussion throughout. Participated in the activity and processed emotions associated with making change, as well as ways a negative mindset can impact willingness to be open to change. Pt reported connecting with group discussion on what barriers can prevent change. Pt appeared to connect with discussion on weighing the pro?s and cons associated with change via decisional balance sheet. Identified a change she would like to make to improve mental health. Pt?s goal is to decide whether or not it would be healthy to reach out and attempt to improve her relationship with her sister. Pt reported potential benefits of change as: potential support, a sense of home, and an improved relationship. While the costs of making the change included: becoming triggered, toxicity, and potential for resurfaced trauma. Progress noted in ability to identify how making this change may impact mental health, and ultimately make the decision that change is not currently realistic and therefore she would best benefit from maintaining current boundaries. Recommended continued IOP to continue to improve thought challenging and dialectical thinking, increase consistent use of healthy coping skills, and prevent decompensation.] Narrative Note: []
--- NOTE | 2019-04-22 10:14 | BH.SGPN.GN ---
Behaviors/Verbalizations/Mental Status: [Client alert and oriented, casually dressed and appropriately groomed. Eye contact good. Motor activity appropriate. Speech WNL. Affect congruent, mood euthymic. Thoughts linear, logical, no signs of hallucinations or delusions. ] Client Response/Progress/Benefit: [Pt responded well to session, providing input during discussion. Pt connected with the topic of fear of failure and commented that ?Fear of change? has been a major factor contributing to difficulties in managing setbacks and potential failure in her own life and shared a personal example of her own experiences with fear of failure. Pt appeared to benefit from gaining awareness of impacts fear of failure can have on mental health and actively practiced becoming comfortable with potential failure in the challenge activity. Pt actively engaged throughout and displayed progress in her ability to utilize supports when struggling to remember the next step in the activity and overcome thoughts of I'm going to forget everything. Able to identify how these skills can relate back to daily life. Recommended continued IOP tx to prevent decompensation, continue to promote healthy skill application, and maintain gains.] Narrative Note: []
--- NOTE | 2019-04-22 11:15 | BH.SGPN.GN ---
Behaviors/Verbalizations/Mental Status: []Client alert and oriented, neatly dressed and groomed. Eye contact good. Motor activity appropriate. Speech within normal limits. Affect congruent, mood euthymic. Thoughts linear, logical, no signs of hallucinations or delusions. Client Response/Progress/Benefit: []Client attentive and providing positive feedback to group discussion. Client completed fear of failure worksheet and shared with group. Identified that fear of failure keeps client from living in the present instead of ruminating on the past. Client identified barriers to overcoming fear of failure which included; fear of relapse, lack of energy, self-sabotage, high expectations, anxiety, hallucinations, and low self-worth. Client identified things that she can do to overcome fear of failure such as; practicing self-care, radical acceptance, grounding, opposite action, listening to music, reaching out to supports, singing, and positive self-talk. Benefited from identifying the impact that fear of failure has had on her life and developing strategies to overcome this. Client showing progress in utilizing thought challenging coping skills more frequently and maintaining her job for the past three weeks. Client to continue IOP to promote gains and increase mood stability.
--- NOTE | 2019-04-24 08:35 | BH.AFTERPLAN ---
Aftercare Plan - Demographics Treatment End Date:: 04/24/19 Psychiatrist:: Yany Luis Psychiatrist Office #:: [phone] [facility] Therapist:: Fawn Acuna Therapist Phone #:: [phone] - Medications Home Medications: Home Medications levonorgestrel 20 mcg/24 hours (5 yrs) 52 mg intrauterine device 1 insert INTRAUTERINE ONCE #1 03/11/18 pantoprazole 40 mg tablet,delayed release 40 mg PO DAILY 09/16/18 aripiprazole 10 mg tablet 15 mg PO DAILY tab 03/13/19 prazosin 2 mg capsule 3 mg PO BID PRN cap 03/13/19 - Plan Details Progress/Aftercare Plan Details:: Damaris has made great strides since starting IOP as shown by her reduced suicidal thoughts, increased functioning, and improved ability to cope with daily stressors. Damaris has been able to utilize coping skills to prevent, and also cope with, crisis. Damaris has demonstrated progress in challenging negative thoughts of self and utilizing mindfulness. Damaris often seeks guidance from her supports and has been a support for them as well. Damaris has been able to manage her symptoms which has helped her get and maintain a job. Damaris reports utilizing music, singing, art, and grounding to cope with anxiety and stress. Damaris states using opposite action and self-care to combat mood symptoms and depression. Damaris has increased self-awareness of her diagnosis, negative thoughts, and maintenance cycles. Damaris reports increased understanding of the consequences of crisis behaviors and she has been working on responding in more mindful ways. Damaris plans to continue ongoing counseling with her outpatient providers for ongoing care. Damaris sees Isa Weston at [facility] for medication management. Damaris also sees Annamaria Ng for individual counseling. Strategies for Success:: 1. Challenge your perspective and look at situations in 3rd person. Use that vines mind thinking to help cope with high emotions. 2. Continue using calming and relaxation techniques such as being outside, singing, painting, self-soothing, and mindfulness. 3. Open communication with supports and continue daily check-ins. 4. BOUNDARIES! Remember you deserve to set boundaries and advocate for yourself. 5. Self-care! Take time to relax, do your makeup, talk with supports, and unplug! 6. Challenge negative thoughts and stay aware of cognitive distortions. 7. Remember to acknowledge your strengths! You have positive qualities that make you unique and your mental health is a part of that! 8. Self-awareness of warning signs, triggers, and physiological symptoms! Get off autopilot and check-in with yourself! 9. Maintain a routine! keep up with medications, sleep, and eating. 10. GIVE YOURSELF CREDIT! YOU ROCK!!! - Appointments Appointments/Referrals to Other Services:: 1. Follow up with Isa Weston at [facility] Next appointment is 05/28/19. 2. Follow up with Annamaria Ng for individual counseling. 3. [facility] is a great place for support! The schizoaffective group is on Tuesdays
--- NOTE | 2019-04-24 09:10 | BH.SGPN.GN ---
Behaviors/Verbalizations/Mental Status: [] Eye contact is good. Motor activity is appropriate. Appearance is casual. Speech is Appropriate. Mood is euthymic. Affect is full. Thoughts are linear and logical. No evidence of psychosis. Reviewed daily check sheet with no reports of suicidal ideations or intent. Client Response/Progress/Benefit: [] Pt was an active participant in group discussion. Emotion for today is confident. Shared that today is her last day in the IOP program. Discussed stressful event yesterday with BF's mother. Reports that they have a strained relationship at times however she is for the most part supportive. Was able to identify some cognitive distortions she was utilizing such as mind-reading and was able to move on from the event. Reports that she has to be careful not to avoid or push down emotions as she will eventually explode. Group provided feedback on effective ways to communicate with her BF's mother and encouraged her not to avoid confrontation. Pt believes that she has been managing her depression, anxiety, and stress fairly well. Also reports that she is beginning to set up boundaries more with her support. Discussed progress made in the IOP program and is confident about her aftercare. Will be discharged today. Narrative Note: []
--- NOTE | 2019-04-24 10:14 | BH.SGPN.GN ---
Behaviors/Verbalizations/Mental Status: []Client alert and oriented, neatly dressed and groomed. Eye contact good. Motor activity restless-shaking her leg throughout session. Speech within normal limits. Affect congruent, mood euthymic. Thoughts linear, logical, no signs of hallucinations or delusions. Client Response/Progress/Benefit: []Client was an active participant in group activity and did well to remain engaged in discussion. Client worked with the group to define anger and its causes. Client provided insight to the discussion of anger as a secondary emotion. Client shared anger can be a defense mechanism for other emotions. Reported connecting with the group discussion on how anger can have unintended consequences towards self and others. Client reported when she does not manage her anger ?it consumes my other emotions.? Client shared some negative consequences of unmanaged anger are shame, poor communication, dysregulation, relationship issues, and denial. Client participated in the group activity and reported embarrassment and frustration with herself, but she shared ?I kept trying anyway, I didn?t give up on my partner.? Benefited from group by increasing awareness of anger as well as the consequences of unmanaged anger. Progress noted in client?s reduced symptoms and improved mood. Client to discharge from [facility] today as she has made strides towards her treatment goals.
--- NOTE | 2019-04-24 15:06 | BH.MDN ---
Multi-Disciplinary Note - Note 30-min Individual Time Started:: 11:45 Date: 04/24/19 Purpose of session/treatment goals addressed:: The purpose of this session was to review client's progress and review strategies that will promote mood stability and gains made in [facility]. Another goal was to discuss discharge recommendations. Eye Contact:: Good Motor Activity:: Restless Appearance:: Neat Speech:: Appropriate Mood:: Euthymic, Anxious Affect:: Congruent Thoughts:: Linear, Logical, No evidence of hallucinations/delusions noted Staff Interventions:: Therapist used open-ended questions to explore client's thoughts on personal progress. Therapist reviewed supports, warning signs, and coping skills with client to promote gains and prevent setbacks. Therapist discussed aftercare plan with client and used strengths-perspective to empower client on the goals client has accomplished. Therapist discussed the benefits of ongoing maintenance and use of daily coping skills. Therapist gave client a quote collage for closure. Client Response:: Client responded well to session, open to meeting with therapist. Client reflected on her progress since starting IOP. Client reported belief she has improved her self-awareness of emotions and shared feeling more confident in managing them. Client has made strides in setting boundaries and communicating with supports. Client reported she no longer has suicidal thoughts and she has accepted that her mental health is beautiful and makes me unique. Client reported she would like to help others with mental health issues one day. Client receptive to reviewing maintenance strategies including coping skills, warning signs, and triggers. Client reports recognizing some warning signs currently including isolation. Client shared she isolated one day this weekend, but she was able to use opposite action and supports to break that cycle. Client's coping skills included; continue using self-soothing and calming coping skills, self-care, self-advocacy through boundary setting, open communication, challenging negative thoughts, look at life in a 3rd person perspective, acknowledging strengths, and doing daily check-ins to promote wellbeing. Client expressed gratitude for [facility] program and staff. Risks/Concerns:: Client denies any suicidal ideations, plan, or intent as of 04/24/19. Client was future oriented throughout session. Progress Toward Goals/Plan:: Client to discharge from [facility] today as she has made progress towards her treatment goals. Client reports improved emotional regulation skills, decreased intensity of symptoms, and increased application of coping skills. Client has improved her daily functioning as shown by her ability to maintain a job for the last month being able to complete ADLs. Client reports increased self-awareness and communication with supports. Client identified personal progress in feeling more connected with supports, increased mood stability, increased self-awareness of emotions, utilizing coping skills more regularly, and thinking with her vines mind more often. Client reports plan to follow up with [facility] and Annamaria Ng for outpatient counseling. Time Stopped:: 12:07
--- NOTE | 2019-04-24 15:07 | BH.DS_ITS ---
Discharge Summary - Demographics Date of Admission:: 02/16/19 Discharge Date: 04/24/19 Presenting Problems at Admission:: Client is a 18-year-old female with a history of schizoaffective disorder, bipolar type, PTSD, and anxiety. Client has had several psychiatric admissions with two recent admissions since September 2018. Client was discharged from [facility] on 01/21/19. Client was referred to [facility] by her outpatient psychiatric nurse practitioner, Isa Weston, due to ongoing mood symptoms. At admission, client endorsed increased sleep, lack of motivation, lack of energy, anhedonia, worthlessness, and hopelessness. Client reported long-standing history of auditory and visual hallucinations as well as mood cycling. Client endorsed anxiety, paranoia, rumination, and significant history of trauma. Client's symptoms were impacting her ability to maintain a job and complete her ADLs. Discharge Diagnoses:: Schizoaffective disorder, bipolar type F25.0; DIONICIO; alcohol use disorder; problematic cannabis use Reason for Discharge:: Client has made strides towards treatment goals as evidenced by her improved functioning and reduced DSM-5 symptoms. Client no longer meets criteria for [facility] level of care. - Treatment Progress During Treatment & Response: Client responded mostly well to treatment as shown by her connection with peers and improved functioning. Client was a positive group member who often provided support statements to peers. Client was open to meeting with this therapist for individual sessions and engaged well in session. It is significant to note that at discharge client had been working for almost a month. At the end of treatment, client was making great strides at thought challenging as well. Client also reported belief that she has been coping with stressor ?better than ever before.? However, client struggled with maintaining consistent attendance, had variable follow through with scheduling appointments and medication noncompliance. Additionally, client struggled to see long periods of mood stability and frequently reported variable sleep and appetite. Client learned through group and individual sessions the costs and benefits of using healthy coping skills, self-care, and setting boundaries. Although client reported increased insight, she consistently reported issues with consistent boundary setting, self-hygiene, and communicating needs. For reasons listed above, client's progress was likely impacted. At discharge, client?s overall DSM-5 symptoms scores decreased which demonstrates progress. Client?s DSM-5 scores for depression decreased, going from 7/8 at admission to 6/8 at discharge. Client?s scores for anxiety decreased from 9/12 to 8/12 at discharge as well. Issues Still to be Addressed:: Client has demonstrating progress since starting IOP, but she can continue to benefit from ongoing therapy and medication management. Client can benefit from individual therapy where she can continue to work on emotional regulation, impulse control, stress management, interpersonal effectiveness, and thought challenging. Client has shown strides in learning and applying these skills while in IOP, but she continued to struggle with maintenance. There is a concern post IOP discharge that client will not follow through with counseling as she has demonstrated inconsistent attendance and application of coping skills while in IOP. Additionally, client can benefit from ongoing case management services to help client increase and reinforce skills to promote independence. Discharge Recommendations/Instructions:: Client was encouraged to follow up with her outpatient mental health providers for continuity of care. Client sees Isa Weston at [facility] for medication management. Client?s next appointment is 05/28/19. Client had been seeing a therapist and oil field caser at [facility] while in [facility], but at discharge client reported she no longer wanted to return to [facility]. Client reported she has contacted her old therapist and client plans to follow up with Annamaria Ng for ongoing counseling. Client did not know the date of her next session and therapist will follow up. Client expressed interest in attending [facility] for the schizoaffective support group and was provided information. Discharge Handout: Complete Discharge Handout with client on aftercare options and continuity of care.
== END 2019-04-24 12:38 | disposition home or self-care (01) ==
LOC: BHIOP 09:00
PROVIDERS: Family Provider Internal Medicine; PCP Internal Medicine; Referring Provider Psychiatry & Neurology Psychiatry; Visit Provider Psychiatry & Neurology Psychiatry
DX: F25.0 Schizoaffective disorder, bipolar type (principal); F41.1 Generalized anxiety disorder; Z72.89 Other problems related to lifestyle; F12.90 Cannabis use, unspecified, uncomplicated; Z79.899 Other long term (current) drug therapy
CPT/HCPCS: H0035; 90832; 90853

== ENCOUNTER 2019-06-19 15:45 | Emergency (ER) | payer BC, SELFPAY ==
[2019-05-06 12:24] VITALS: BMI 32.9
[2019-06-19 15:49] VITALS: BP 132/82; PULSE 60; RESP 16; TEMP 36.8; O2SAT 100; BMI 33.4
[2019-06-19 16:16] VITALS: BP 129/81; BP 137/88; BP 139/98; PULSE 61; PULSE 69; PULSE 75
--- NOTE | 2019-06-19 16:16 | CT_ITS ---
STUDY: CT BRAIN WITHOUT CONTRAST REASON FOR EXAM: Female, 19 years old. Acute head injury during a fall. RADIATION DOSAGE (If Supplied By Facility): CTDIvol = ( 60.81 ) mGy, DLP = ( 998.67 ) mGycm TECHNIQUE: Transaxial CT imaging of the brain was performed without administration of intravenous contrast material. Individualized dose optimization techniques were used for this CT. COMPARISON: No relevant priors. FINDINGS: Normal soft tissue structures. Normal calvarium. Normal size ventricles and extra-axial spaces for the patient's age. Normal white matter tracts of the cerebral hemispheres. Normal basal ganglia and thalami. Normal brainstem. Normal cerebellum. There is no intracranial hemorrhage. There are no findings of an acute ischemic infarction. Normal visualized paranasal sinuses. CT/Brain/Head without Contrast IMPRESSION: Normal unenhanced CT scan of the brain. Electronically Signed: Karis Tate MD at 17:31 EDT , Service support ,
--- NOTE | 2019-06-19 16:17 | EKG12_ITS ---
Test Reason : SYNCOPE Blood Pressure : / mmHG Vent. Rate : 054 BPM Atrial Rate : 054 BPM P-R Int : 132 ms QRS Dur : 098 ms QT Int : 424 ms P-R-T Axes : 032 063 054 degrees QTc Int : 402 ms Sinus bradycardia Otherwise normal ECG Confirmed by VITO COY, JEREMY ([id number]), publications editor LETICIA HO ([id number]) on 06/23/2019 11:20:22 AM Referred By: BB Confirmed By:JEREMY PADRON MD
--- NOTE | 2019-06-19 16:18 | ED.DCSUM_ITS ---
History of Present Illness Chief Complaint: Syncope Informant: Patient Onset: Today Context: Gradual Onset Timing: Intermittent - x1, Lasts - 1-2 min Quality: Lightheaded Current Severity: gone Maximum Severity: Severe Worsened by: Standing Relieved by: Not by sitting Narrative: Patient was at work, she started feeling lightheaded. She sat down in her bosses office and proceeded to pass out, hitting her head during it. She awoke and vomited. We now she still feels nauseated, has a mild headache, but overall feels better than she did. She states that she had a bagel and some egg this morning and then vomited afterwards, she had reflux sensation and states in the past she was diagnosed with some esophageal tears and frequently gets reflux symptoms, which then progresses to vomiting frequently, as it did this morning. She has not drank any fluids since she vomited this morning and this occurred just prior to arrival around 4 PM. She states she has had some right pelvic discomfort for almost a week that she associates with the feeling of an ovarian cyst. He has been gradual in onset. It has not affected her appetite. - Past Medical History (1) Bipolar 1 disorder Status: Chronic (2) Borderline personality disorder Status: Chronic (3) GERD (gastroesophageal reflux disease) Status: Chronic (4) Hypercholesteremia Status: Chronic (5) Hypertension Status: Chronic (6) PTSD (post-traumatic stress disorder) Status: Chronic (7) Schizo affective schizophrenia Status: Chronic (8) Spondylosis Status: Chronic Past Medical History - Allergies and Home Meds Allergies/Adverse Reactions: Allergies shellfish derived Allergy (Severe, Verified 06/19/19 15:52) swelling amoxicillin Adverse Reaction (Verified 06/19/19 15:52) Rash mushrooms Allergy (Severe, Uncoded 06/19/19 15:52) swelling Primary Care Physician: Maged Dyer MD [Primary Care Provider] - 1-2 Days if not improving Lives: With Family Smoking Status: Current every day smoker Review of Systems General: Reports: Malaise. Denies: Chills, Fever, Sweats Eyes: Denies: Visual changes - bilaterally, Diplopia ENT: Denies: Bilateral ear pain, Rhinorrhea, Sore throat Cardiovascular: Denies: Chest pain, Palpitations Respiratory: Denies: Dyspnea, Cough, Dyspnea on exertion Gastrointestinal: Reports: Abdominal pain, Nausea, Vomiting. Denies: Diarrhea, Melena, Hematochezia Genitourinary: Denies: Dysuria, Hematuria, Frequency Musculoskeletal: Denies: Neck pain, Back pain, Swelling, Extremity Pain Skin: Denies: Rash, Wounds Neurological: Reports: Headache. Denies: Weakness, Numbness Physical Exam Vital Signs/Narrative: Vital Signs Temp Pulse Resp BP Pulse Ox 06/19/19 15:49 98.3 F 60 16 132/82 H 100 Inital Vital Signs reviewed: Yes General: Well nourished, Well developed, No Acute Distress Head: Normocephalic, Atraumatic. Negative for: Trauma, Tenderness Eyes: Perrl, EOMI ENT: Moist mucous membranes, No rhinorrhea, TM's clear. Negative for: Sinus tenderness Neck: Supple, Nontender Cardiovascular: Regular rate, Regular rhythm, No murmurs Respiratory: No distress, CTA bilaterally, Chest nontender Abdomen: Soft, Nondistended, Normal bowel sounds, Tender - Diffusely, mildly, nonfocal. Negative for: Guarding, Rebound tenderness, Mass, Psoas sign, Obturator sign, Rovsig's sign, Miguel's sign Back: Nontender, Normal Inspection. Negative for: CVA tenderness Extremities: Nontender, No edema. Negative for: Calf Tenderness Skin: Normal color, No rash, No Trauma Neurological: Alert, Oriented x3, Cranial nerves II-XII grossly intact, Normal Strength, Normal Sensation Psychological: Normal affect, Normal Mood Diagnostic/Tx/Re-eval Impressions Brain CT 06/19/19 16:16 IMPRESSION: Normal unenhanced CT scan of the brain. Electronically Signed: Karis Tate MD at 17:31 EDT , Service support , 06/19/19 16:16 Brain/Head without Contrast [CT] Stat Laboratory Results 06/19/19 06/19/19 06/19/19 16:40 16:40 16:50 WBC 10.7 RBC 4.74 Hgb 12.7 Hct 39.4 MCV 83.1 MCH 26.8 L MCHC 32.2 RDW Std Deviation 43.8 RDW Coeff of [place] 14.4 Plt Count 289 MPV 11.5 Immature Gran % (Auto) 0.300 Neut % (Auto) 64.9 Lymph % (Auto) 26.3 [place] % (Auto) 7.4 Eos % (Auto) 0.7 Baso % (Auto) 0.4 Absolute Neuts (auto) 7.0 Absolute Lymphs (auto) 2.82 Nucleated RBC % 0 Sodium 142 Potassium 3.9 Chloride 112 H Carbon Dioxide 25.0 Anion Gap 5 BUN 14 Creatinine 0.89 Estim Creat Clear Calc 79.08 Est GFR (MDRD) Af Amer 103 Est GFR (MDRD) Non-Af 85 BUN/Creatinine Ratio 15.8 Glucose 87 Calcium 9.0 Urine Color Urine Clarity Urine pH Ur Specific [place] Urine Protein Urine Glucose (UA) Urine Ketones Urine Occult Blood Urine Nitrite Urine Bilirubin Urine Urobilinogen Ur Leukocyte Esterase Urine RBC Urine WBC Ur Squamous Epith Cells Urine Bacteria Urine Mucus Urine Test Negative 06/19/19 16:50 WBC RBC Hgb Hct MCV MCH MCHC RDW Std Deviation RDW Coeff of [place] Plt Count MPV Immature Gran % (Auto) Neut % (Auto) Lymph % (Auto) [place] % (Auto) Eos % (Auto) Baso % (Auto) Absolute Neuts (auto) Absolute Lymphs (auto) Nucleated RBC % Sodium Potassium Chloride Carbon Dioxide Anion Gap BUN Creatinine Estim Creat Clear Calc Est GFR (MDRD) Af Amer Est GFR (MDRD) Non-Af BUN/Creatinine Ratio Glucose Calcium Urine Color Straw Urine Clarity Clear Urine pH 7.0 Ur Specific [place] 1.010 Urine Protein Negative Urine Glucose (UA) Normal Urine Ketones Negative Urine Occult Blood Negative Urine Nitrite Negative Urine Bilirubin Negative Urine Urobilinogen Normal Ur Leukocyte Esterase Negative Urine RBC 0 SEEN Urine WBC 0 SEEN Ur Squamous Epith Cells 0 SEEN Urine Bacteria 0 SEEN Urine Mucus 0 SEEN Urine Test - Rhythm Strip Rhythm Strip: Sinus Rhythm Rate: 60 Ectopy: None - EKG Initial EKG Interpretation: No Acute Injury Pattern - And otherwise normal EKG, Sinus Bradycardia - Medical Decision Making Orthostatics were negative, patient is feeling better and walking the hallways. No sign of any infection, anemia, is negative. Head CT after her injury is negative. Suspect either she had a vagal reaction, transient hypoglycemia, or dehydration as the most likely causes of her syncopal episode. She was given fluids and is feeling better after Zofran, stable for discharge home with close outpatient follow-up. She is comfortable with that plan. ED Disposition - Plan for ED Patient: Disposition: Home or Assisted Living Diagnosis: Syncope Instructions: SYNCOPE, Unk Cause Prescriptions: Ondansetron [Zofran] 8 mg PO Q8H PRN #12 tab PRN Reason: Nausea Prescription Printed Referrals: Maged Dyer MD [Primary Care Provider] - 1-2 Days if not improving
--- NOTE | 2019-06-19 16:34 | ED.RN ---
pt declining workmans comp. Kari with [employer] notified
[2019-06-19] MEDS: Ondansetron 4 MG/2 ML Vial IV (16:39)
[2019-06-19 16:55] LABS: Absolute Lymphocyte Count 2.82 X10^3/uL (0.83-4.51); Basophil# 0.04 X10^3/uL; Basophil% 0.4 % (0-1); Eosinophil# 0.08 X10^3/uL; Eosinophils% 0.7 % (0-5); Hematocrit 39.4 % (37-47); Hemoglobin 12.7 g/dL (12.0-15.0); Lymphocyte # 2.82 X10^3/ul (4.0); Lymphocyte % 26.3 % (19-41); Mean Corp Hgb Conc 32.2 g/dL (32-36); Mean Corpuscular Hgb 26.8 pg (27.0-32.0); Mean Corpuscular Volume 83.1 fL (81-99); Mean Platelet Vol. 11.5 fl (6.2-12.0); Monocyte# 0.79 X10^3/uL; Monocyte% 7.4 % (0-10); NRBC Flagged by Analyzer 0 % (0-5); Neutrophil # 6.95 X10^3/uL (2.7-7.7); Neutrophil % 64.9 % (47-70); Platelet Count 289 K/mm3 (150-450); RBC Distribution Width CV 14.4 % (11.6-14.6); RBC Distribution Width SD 43.8 fl (35.1-43.9); Red Blood Count 4.74 M/mm3 (4.2-5.4); White Blood Count 10.7 K/mm3 (4.4-11.0)
[2019-06-19 16:56] LABS: Bacteria 0 SEEN /hpf (None Seen); Mucous, Urine 0 SEEN /hpf (<or=2+); Red Blood Cells-Urine 0 SEEN /hpf (0-5); Squamous Epithelial Cells - UA 0 SEEN /hpf (5-10); White Blood Cells 0 SEEN /hpf (0-5)
[2019-06-19 16:59] LABS: Color, Urine Straw (Yellow); Glucose, Dipstick Normal (Normal); Ketone-Dipstick Negative (Negative); Leukocyte Esterase-Dipstick Negative /ul (Negative); Nitrite-Dipstick Negative (Negative); Occult Blood-Urine Negative /ul (Negative); Protein-Dipstick Negative (Negative); Urine Bilirubin Dipstick Negative (Negative); Urine Clarity Clear (Clear); Urine Urobilinogen Normal (Normal)
[2019-06-19 17:03] LABS: Internal QC Validated? YES +Cl - CLEAR BKGD; Pregnancy, Urine Negative Negative
[2019-06-19 17:19] LABS: Anion Gap 5 (5-15); BUN 14 mg/dL (7-18); BUN/Creat Ratio 15.8 RATIO (10-20); Chloride 112 mmol/L (98-107); Creatinine, Serum 0.89 mg/dL (0.55-1.02); EST Glomerular Filtration Rate 85 mL/min (>60); Est Glom Filt Rate - Afr Amer 103 mL/min (>60); Estimated Creatinine Clearance 79.08 ml/min; Glucose 87 mg/dL (74-106); Potassium 3.9 mmol/L (3.5-5.1); Sodium Level 142 mmol/L (136-145)
[2019-06-19 17:49] VITALS: BP 120/94; PULSE 57; RESP 17; O2SAT 100
[2019-06-19] MEDS: 0.9% Normal Saline 1,000 ML 999 ML IV (18:16)
== END 2019-06-19 19:09 | disposition home or self-care (01) ==
PROVIDERS: Emergency Provider Emergency Medicine; Family Provider Internal Medicine; PCP Internal Medicine
DX: R55 Syncope and collapse (principal); S09.90XA Unspecified injury of head, initial encounter; W19.XXXA Unspecified fall, initial encounter; Y93.9 Activity, unspecified; Y92.9 Unspecified place or not applicable; R10.2 Pelvic and perineal pain; F60.3 Borderline personality disorder; K21.9 Gastro-esophageal reflux disease without esophagitis; I10 Essential (primary) hypertension; F43.10 Post-traumatic stress disorder, unspecified; F25.0 Schizoaffective disorder, bipolar type; M47.9 Spondylosis, unspecified; Z79.899 Other long term (current) drug therapy; F17.200 Nicotine dependence, unspecified, uncomplicated
CPT/HCPCS: 70450; 80048; 81001; 81025; 85025; 93005; 96361; 96374; 99285; J7030; A4216; J2405

== ENCOUNTER → 2019-08-20 14:27 | Outpatient (CLI) | payer BC, SELFPAY ==
[2019-08-19 16:20] VITALS: BMI 33.4
== END ==
PROVIDERS: Family Provider Internal Medicine; PCP Internal Medicine; Referring Provider Physician Assistant; Visit Provider Physician Assistant
DX: J02.9 Acute pharyngitis, unspecified (principal)
CPT/HCPCS: 87070

== ENCOUNTER → 2021-09-07 16:12 | Outpatient (CLI) | payer BC, SELFPAY ==
[2021-09-07 18:01] LABS: Absolute Lymphocyte Count 3.28 X10^3/uL (0.83-4.51); Absolute Neutrophil Count 3.3 X10^3/uL (2.0-7.7); Basophil# 0.02 X10^3/uL; Basophil% 0.3 % (0-1); Eosinophil# 0.19 X10^3/uL; Eosinophils% 2.6 % (0-5); Hematocrit 40.1 % (37-47); Hemoglobin 13.2 g/dL (12.0-15.0); Lymphocyte # 3.28 X10^3/ul (0.83-4.51); Lymphocyte % 44.1 % (19-41); Mean Corp Hgb Conc 32.9 g/dL (32-36); Mean Corpuscular Hgb 30.1 pg (27.0-32.0); Mean Corpuscular Volume 91.3 fL (81-99); Mean Platelet Vol. 12.7 fl (6.2-12.0); Monocyte# 0.65 X10^3/uL; Monocyte% 8.7 % (0-10); NRBC Flagged by Analyzer 0 % (0-5); Neutrophil # 3.28 X10^3/uL (2.7-7.7); Platelet Count 282 K/mm3 (150-450); RBC Distribution Width CV 13.1 % (11.6-14.6); RBC Distribution Width SD 43.8 fl (35.1-43.9); Red Blood Count 4.39 M/mm3 (4.2-5.4); White Blood Count 7.4 K/mm3 (4.4-11.0)
[2021-09-07 18:17] LABS: Vitamin B12 609 pg/mL (211-911)
[2021-09-07 18:21] LABS: ALB/GLOB Ratio 1.1 RATIO (0.9-2.4); AST(SGOT) 9 U/L (15-37); Alanine Aminotransfer ALT/SGPT 18 U/L (13-56); Albumin, Serum 3.9 g/dL (3.2-5.0); Alkaline Phosphatase 65 U/L (45-117); Anion Gap 3 (5-15); BUN 14 mg/dL (7-18); BUN/Creat Ratio 15.2 RATIO (10-20); Chloride 110 mmol/L (98-107); Cholesterol 150 mg/dL (200); Creatinine, Serum 0.92 mg/dL (0.55-1.02); EST Glomerular Filtration Rate 80 mL/min (>60); Est Glom Filt Rate - Afr Amer 97 mL/min (>60); Ferritin 74 ng/mL (8-252); Globulin 3.5 g/dL (2.2-4.2); Glucose 83 mg/dL (74-106); High Density Lipoprotein 31 mg/dL; Iron 85 ug/dL (50-170); Iron Binding Capacity,Total 305 ug/dL (250-450); PERCENT IRON SATURATION 27.9 % (15.0-55.0); Potassium 3.8 mmol/L (3.5-5.1); Protein, Total 7.4 g/dL (6.4-8.2); Sodium Level 140 mmol/L (136-145); Thyroid Stim Hormone (TSH) 1.87 uIU/mL (0.358-3.74); Triglycerides 88 mg/dL; Very Low Density Lipoprotein 18 mg/dL (5-40)
== END ==
PROVIDERS: PCP Internal Medicine
DX: R53.82 Chronic fatigue, unspecified (principal); R10.9 Unspecified abdominal pain; R51.9 Headache, unspecified; E55.9 Vitamin D deficiency, unspecified; D51.9 Vitamin B12 deficiency anemia, unspecified; D64.9 Anemia, unspecified; Z13.220 Encounter for screening for lipoid disorders
CPT/HCPCS: 36415; 80053; 80061; 82306; 82607; 82728; 83540; 83550; 84443; 85025

== ENCOUNTER → 2021-10-11 13:23 | Outpatient (CLI) | payer BC, SELFPAY | PROVIDERS: PCP Internal Medicine; Referring Provider Physician Assistant; Visit Provider Physician Assistant | DX: Z11.52 Encounter for screening for COVID-19 (principal) | CPT/HCPCS: 87635; U0005; U0003 ==

== ENCOUNTER 2021-11-03 13:07 | Emergency (ER) | payer BC, SELFPAY ==
[2021-11-03 13:08] VITALS: BP 126/87; PULSE 83; RESP 18; TEMP 35.9; O2SAT 99; BMI 30.2
--- NOTE | 2021-11-03 14:25 | EDS_ITS ---
HPI History of Present Illness Chief Complaint: Shortness of Breath Narrative Narrative: 21-year-old female presenting with wheezing. She states she is on day 10 of COVID-19 symptoms. She went to the urgent care today and was prescribed steroids and an albuterol inhaler. She states that she does sometimes get wheezy when she has a viral illness. She states has had to be on steroids and an inhaler in the past. She has not filled the prescription. Patient states that she was told to follow-up with her PCP and when she called her primary care doctor's office they told her to come to the emergency room because they cannot see her for 22 days. Patient states that she still having a mild cough, body aches, chills. She is eating and drinking normally. Is making normal urine and stool. [facility] Medical History Anemia Anxiety and depression Back pain Back problem Bipolar 1 disorder Borderline personality disorder Diarrhea Fatigue Flu vaccine need Frequent headaches Gastrointestinal problem High cholesterol Hives Hypertension Incontinence Loss of consciousness Low HDL (under 40) Migraines PTSD (post-traumatic stress disorder) Schizo affective schizophrenia SOB (shortness of breath) Spondylosis UTI (urinary tract infection) Vision problems Vitamin D deficiency Vitamin deficiency Home Medications cariprazine 3 mg capsule 3 mg PO DAILY 09/20/21 [History Last Taken Unknown] ergocalciferol (vitamin D2) 1,250 mcg (50,000 unit) capsule 1,250 mcg PO QWEEK 09/20/21 [History Last Taken Unknown] etonogestrel 68 mg subdermal implant 1 implant SUBDERMAL ONCE 09/20/21 [History Last Taken Unknown] methylphenidate HCl 20 mg chewable tablet immed and exten.release 24 hr 20 mg PO DAILY 09/20/21 [History Last Taken Unknown] propranolol 80 mg capsule,24 hr,extended release 80 mg PO DAILY 09/20/21 [History Last Taken Unknown] Allergy/AdvReac Type Severity Reaction Status Date / Time shellfish derived Allergy Severe swelling Verified 11/03/21 13:10 latex Allergy Intermediate Rash Verified 11/03/21 13:10 amoxicillin AdvReac Rash Verified 11/03/21 13:10 zinc AdvReac Vomiting Verified 11/03/21 13:10 mushrooms Allergy Severe swelling Uncoded 11/03/21 13:10 Family History Mother Mental health disorder Grandmother Anxiety Grandfather Heart disease Father Hypertension Sister Mental health disorder Other Alcoholism /alcohol abuse Anemia Breast cancer Depression Diabetes High cholesterol Severe allergy Suicide attempt Thyroid disorder Surgical History History of strabismus surgery Social History Smoking Status: Former smoker Electronic Cigarette Use: with nicotine alcohol intake: current alcohol intake frequency: a few times a month Alcohol type: beer, wine, hard liquor and other details: social substance use type: former substance user caffeine: Yes what type of physical activity do you participate in: none seatbelt use: always do you feel safe at home: Yes additional social history: Patient works at [email or web address] ED Constitutional Constitutional ED: Reports chills; Denies sweats or weight loss Eyes Eyes: Denies blurry vision or diplopia ENT ENT ED: Reports rhinorrhea; Denies sore throat Cardiovascular Cardiovascular: Denies chest pain or palpitations Respiratory/Chest Respiratory/Chest: Reports cough and dyspnea Gastrointestinal Gastrointestinal: Denies abdominal pain, nausea or vomiting Genitourinary Genitourinary ED: Denies dysuria or hematuria Musculoskeletal Musculoskeletal: Reports myalgias; Denies arthralgias or neck pain Integumentary Denies rash Neurologic Neurologic: Reports headache(s); Denies paresthesias or weakness EXAM Physical Exam Const Vital Signs: 11/03/21 13:08 Temperature 96.7 F L Temperature Source Temporal Pulse Rate 83 Respiratory Rate 18 Blood Pressure 126/87 H Blood Pressure Mean 100 Pulse Ox 99 Oxygen Delivery Method Room Air Positive well nourished General Appearance ED: NAD; Negative for pallor HEENT Reports moist mucous membranes atraumatic Eyes PERRL and EOMs intact bilaterally Neck no lymphadenopathy and supple Resp normal respiratory effort and clear to auscultation bilaterally Cardio regular rate and regular rhythm Neuro oriented x3, CN's II-XII intact bilaterally and no sensory deficits noted Sensorium / Orientation: alert Motor Exam: strength 5/5 throughout Psych mental status grossly normal Thought Process: normal thought process Skin General Skin Exam: Negative for jaundice or pallor MDM MDM MDM Narrative Medical decision making narrative: Patient presenting with symptoms of COVID-19. She is currently on day 10. She is wheezing on examination. She states that she already has steroids and an albuterol inhaler ordered however when she called her primary care doctor's office to set up a follow-up appointment they told her to come to the emergency room. She is unclear why. Patient does have a mild wheeze on examination. She does admit to vaping and she no longer smokes. I counseled her to discontinue this. Patient is to Finish quarantine if she is not able to improve her wheezing and feels like she needs a repeat evaluation she is counseled to collect emergency room. Impression: 1. COVID-19 pneumonitis 2. Bronchitis with wheezing Discharge Plan Triage Chief Complaint: Shortness of Breath ED Provider: Michael Myers Dx/Rx/DC Orders Instructions: Coronavirus Disease 2019 (COVID-19): Caring for Yourself or Others, ED Bronchitis with Wheezing (Adult) Prescriptions: No Action Nexplanon 68 mg implant 1 implant subdermal ONCE RF: 0 propranolol 80 mg capsule,extended release 24 hr 80 mg PO DAILY RF: 0 Vraylar 3 mg capsule 3 mg PO DAILY RF: 0 QuilliChew ER 20 mg tablet,[id number],[id number] 20 mg PO DAILY RF: 0 ergocalciferol (vitamin D2) [Vitamin D2] 1,250 mcg (50,000 unit) capsule 1,250 mcg PO QWEEK RF: 0 Primary Care Provider: Maged Dyer Referrals: Maged Dyer MD [Primary Care Provider] - Disposition Disposition: Home, Self Care
--- NOTE | 2021-11-03 15:26 | ED.RN ---
This RN went into patients room to give her her d/c paperwork. patient was no longer in her room or either of the bathrooms. Charge Nurse notified
== END 2021-11-03 15:26 | disposition home or self-care (01) ==
LOC: ED 15:09
PROVIDERS: Emergency Provider Student in an Organized Health Care Education/Training Program; PCP Internal Medicine; Visit Provider Student in an Organized Health Care Education/Training Program
DX: U07.1 COVID-19 (principal); J12.82 Pneumonia due to coronavirus disease 2019; Z87.891 Personal history of nicotine dependence; J40 Bronchitis, not specified as acute or chronic; R06.2 Wheezing
CPT/HCPCS: 99282